=== PATIENT | male | born 1940 | race Caucasian/White ===

== ENCOUNTER 2018-12-01 17:23 | Emergency (ER) | payer MEDICARE, OTHER ==
[~2018-12-01] VITALS: Ht 177.8 cm; Wt 102.8 kg
[~2018-12-01 17:23] MED LIST: ALLO100 PO; ASPI325 PO; ASPI325EC PO; ATOR10 PO; ATOR20 PO; COLC.6 PO; DIAZ5 PO; Enablex15 MG PO; Humalog100 UNIT/1 SC; IBUP600 PO; INSULANPEN SC; Indomethacin50 MG PO; JARDIANCE10 MG PO; LISI5 PO; METO50 PO; METOPROLOL PO; NAPR500 PO; OXYACE5T PO; PRAM.5 PO; PRED20 PO; QUIN325 PO; SAXA2.5T PO; TRAM50 PO; Toviaz8 MG PO
[2018-12-01 18:08] LABS: Base Excess Venous 0.8 mmol/L; Bicarbonate Venous 24.7 mmol/L (24.0-30.0); PO2 Venous 62.7 mmHg (38-42); pH Blood Venous 7.39 (7.34-7.37)
[2018-12-01 18:16] LABS: Source, Urine Clean Catch
[2018-12-01 18:22] LABS: BASOPHILS ABSOLUTE AUTO 0.02 K/mm3 (0.00-0.23); BASOPHILS PERCENT AUTO 0 % (0-2); EOSINOPHILS ABSOLUTE AUTO 0.32 K/mm3 (0.00-0.68); EOSINOPHILS PERCENT AUTO 4 % (0-6); Hematocrit 44.1 % (37.0-53.0); Hemoglobin 15.1 g/dL (13.5-17.5); IMMATURE GRAN ABSOLUTE AUTO 0.02 K/mm3 (0.00-0.10); IMMATURE GRAN PERCENT AUTO 0 % (0-1); LYMPHOCYTES ABSOLUTE AUTO 2.17 K/mm3 (0.84-5.20); LYMPHOCYTES PERCENT AUTO 29 % (21-46); MONOCYTES ABSOLUTE AUTO 0.64 K/mm3 (0.16-1.47); MONOCYTES PERCENT AUTO 9 % (4-13); Mean Corpuscular HGB 32.1 pg (26.0-34.0); Mean Corpuscular HGB Conc 34.2 g/dL (31.5-36.5); Mean Corpuscular Volume 94 fL (80-100); Mean Platelet Volume 10.5 fL (9.1-12.4); NEUTROPHILS ABSOLUTE AUTO 4.37 K/mm3 (1.96-9.15); NEUTROPHILS PERCENT AUTO 58 % (41-73); Platelet Count 172 K/mm3 (150-400); RDW Coefficient Variation 12.8 % (11.7-14.2); RDW Standard Deviation 43.9 fL (35.1-46.3); White Blood Cell Count 7.54 K/mm3 (4.00-11.30)
[2018-12-01 18:23] LABS: Appearance, Urine Clear (Clear); Bilirubin, Urine Neg (Neg); Blood, Urine 1+ (Neg); Color, Urine Yellow (P-Yellow); Glucose Qualitative, Urine 2+ (Neg); Ketones, Urine Neg (Neg); Leukocyte Esterase, Urine Neg (Neg); Nitrite, Urine Neg (Neg); Protein, Urine 2+ (Neg); Specific Gravity, Urine 1.025 (1.003-1.022); Urobilinogen, Urine NORM (Normal)
[2018-12-01 18:42] LABS: Bacteria Rare /hpf; Squamous Epithelial Cells Rare /hpf (Few); White Blood Cells, Urine 0-2 /hpf (0-5)
[2018-12-01 18:51] LABS: Alanine Aminotransfer (ALT/SGP 63 U/L (12-78); Albumin, Blood 3.5 g/dL (3.4-5.0); Albumin/Globulin Ratio 0.8 (0.8-1.8); Alk Phos 104 U/L (50-136); Anion Gap 7 mmol/L (6-16); Aspartate Aminotrans (AST/SGOT 44 U/L (12-37); Bilirubin, Total 0.4 mg/dL (0.1-1.0); Blood Urea Nitrogen 25 mg/dL (8-24); Bun/Creatinine Ratio 20.8 (12.0-20.0); CO2, Blood 25 mmol/L (21-32); Chloride, Blood 104 mmol/L (98-108); Globulin, Blood 4.5 g/dL (2.2-4.0); Glomerular Filtration Rate >60 (60-); Glucose, Blood 245 mg/dL (70-99); Potassium, Blood 4.1 mmol/L (3.5-5.5); Sodium, Blood 136 mmol/L (136-145)
== END 2018-12-01 21:20 | disposition short-term general hospital (02) ==
LOC: ER 17:23
PROVIDERS: Physician Assistant
DX: I60.9 Nontraumatic subarachnoid hemorrhage, unspecified (principal); E11.9 Type 2 diabetes mellitus without complications; I10 Essential (primary) hypertension; Z88.8 Allergy status to other drugs, medicaments and biological substances; Z79.899 Other long term (current) drug therapy; Z79.82 Long term (current) use of aspirin; Z79.4 Long term (current) use of insulin; Z79.891 Long term (current) use of opiate analgesic; I25.2 Old myocardial infarction; Z86.73 Personal history of transient ischemic attack (TIA), and cerebral infarction without residual deficits
CPT/HCPCS: 36415; 70450; 80053; 81001; 82010; 82803; 85025; 93005; 93010; 96374; 96375; 99285-25; J1953; J7050

== ENCOUNTER 2019-04-23 13:11 | Emergency (ER) | payer MEDICARE, OTHER ==
[~2019-04-23] VITALS: Ht 175.3 cm; Wt 89.4 kg
[2019-04-23 13:59] LABS: BASOPHILS ABSOLUTE AUTO 0.03 K/mm3 (0.00-0.23); BASOPHILS PERCENT AUTO 0 % (0-2); EOSINOPHILS ABSOLUTE AUTO 0.54 K/mm3 (0.00-0.68); EOSINOPHILS PERCENT AUTO 6 % (0-6); Hematocrit 42.3 % (37.0-53.0); Hemoglobin 13.9 g/dL (13.5-17.5); IMMATURE GRAN ABSOLUTE AUTO 0.02 K/mm3 (0.00-0.10); IMMATURE GRAN PERCENT AUTO 0 % (0-1); LYMPHOCYTES PERCENT AUTO 26 % (21-46); MONOCYTES ABSOLUTE AUTO 0.69 K/mm3 (0.16-1.47); MONOCYTES PERCENT AUTO 7 % (4-13); Mean Corpuscular HGB 30.8 pg (26.0-34.0); Mean Corpuscular HGB Conc 32.9 g/dL (31.5-36.5); Mean Corpuscular Volume 94 fL (80-100); Mean Platelet Volume 10.4 fL (9.1-12.4); NEUTROPHILS ABSOLUTE AUTO 5.59 K/mm3 (1.96-9.15); NEUTROPHILS PERCENT AUTO 60 % (41-73); Platelet Count 167 K/mm3 (150-400); RDW Coefficient Variation 14.5 % (11.7-14.2); RDW Standard Deviation 49.3 fL (35.1-46.3); Red Blood Cell Count 4.52 M/mm3 (4.30-5.90); White Blood Cell Count 9.27 K/mm3 (4.00-11.30)
[2019-04-23 14:17] LABS: Alanine Aminotransfer (ALT/SGP 30 U/L (12-78); Albumin, Blood 3.5 g/dL (3.4-5.0); Albumin/Globulin Ratio 0.8 (0.8-1.8); Alk Phos 122 U/L (50-136); Anion Gap 5 mmol/L (6-16); Aspartate Aminotrans (AST/SGOT 21 U/L (12-37); Bilirubin, Total 0.3 mg/dL (0.1-1.0); Blood Urea Nitrogen 33 mg/dL (8-24); Bun/Creatinine Ratio 33.4 (12.0-20.0); CO2, Blood 30 mmol/L (21-32); Chloride, Blood 106 mmol/L (98-108); Creatinine, Blood 0.99 mg/dL (0.60-1.20); Globulin, Blood 4.6 g/dL (2.2-4.0); Glomerular Filtration Rate >60 (60-); Glucose, Blood 110 mg/dL (70-99); Potassium, Blood 4.1 mmol/L (3.5-5.5); Sodium, Blood 141 mmol/L (136-145); Total Protein, Blood 8.1 g/dL (6.4-8.2)
[2019-04-23 15:27] LABS: CPK Creatine Kinase 65 U/L (39-308)
[2019-04-23 16:34] LABS: Source, Urine Clean Catch
[2019-04-23 16:42] LABS: Bilirubin, Urine Neg (Neg); Blood, Urine Neg (Neg); Glucose Qualitative, Urine Neg (Neg); Ketones, Urine 1+ (Neg); Leukocyte Esterase, Urine 1+ (Neg); Nitrite, Urine Neg (Neg); Protein, Urine 2+ (Neg); Specific Gravity, Urine 1.025 (1.003-1.022); Urobilinogen, Urine NORM (Normal)
[2019-04-23 16:48] LABS: Appearance, Urine Hazy (Clear); Color, Urine Yellow (P-Yellow)
[2019-04-23 16:49] LABS: Bacteria Rare /hpf; Red Blood Cells, Urine 0-2 /hpf (0-2); Squamous Epithelial Cells Few /hpf (Few)
[2019-04-23] MEDS ORDERED: Fleet Enema132 ML PR (16:54)
[2019-04-23] MEDS ORDERED: CEPH500 PO (16:54)
== END 2019-04-23 17:11 | disposition home or self-care (01) ==
LOC: ER 13:11
PROVIDERS: Physician Assistant
DX: R55 Syncope and collapse (principal); S40.811A Abrasion of right upper arm, initial encounter; K59.00 Constipation, unspecified; E86.0 Dehydration; W18.30XA Fall on same level, unspecified, initial encounter; Z88.8 Allergy status to other drugs, medicaments and biological substances; Z79.899 Other long term (current) drug therapy; Z79.82 Long term (current) use of aspirin; Z79.4 Long term (current) use of insulin; Z79.891 Long term (current) use of opiate analgesic; I25.2 Old myocardial infarction; E11.9 Type 2 diabetes mellitus without complications
CPT/HCPCS: 36415; 73080; 74019; 80053; 81001; 82550; 83880; 85025; 87086; 90471; 90714; 93005; 93010; 96361; 96374; 99284-25; J3010; J7030

== ENCOUNTER 2020-05-26 14:12 | Inpatient (IN) | payer MEDICARE, OTHER ==
[~2020-05-26] VITALS: Ht 175.3 cm; Wt 101.2 kg
[~2020-05-26 14:12] MED LIST changes: +CEPH500 PO; +Fleet Enema132 ML PR; +INDO50 PO; -Indomethacin50 MG PO
[2020-05-26] MEDS ORDERED: KEPPRA250 MG PO (14:39)
[2020-05-26] MEDS ORDERED: TAMS.4ER PO (14:40)
[2020-05-26] MEDS ORDERED: LACO50TA2 PO (14:41)
[2020-05-26] MEDS ORDERED: ATOR20 PO (14:42)
[2020-05-26 14:57] LABS: BASOPHILS ABSOLUTE AUTO 0.02 K/mm3 (0.00-0.23); BASOPHILS PERCENT AUTO 0 % (0-2); EOSINOPHILS ABSOLUTE AUTO 0.27 K/mm3 (0.00-0.68); EOSINOPHILS PERCENT AUTO 4 % (0-6); Hematocrit 41.8 % (37.0-53.0); IMMATURE GRAN ABSOLUTE AUTO 0.02 K/mm3 (0.00-0.10); IMMATURE GRAN PERCENT AUTO 0 % (0-1); LYMPHOCYTES ABSOLUTE AUTO 3.04 K/mm3 (0.84-5.20); LYMPHOCYTES PERCENT AUTO 42 % (21-46); MONOCYTES PERCENT AUTO 8 % (4-13); Mean Corpuscular HGB 32.5 pg (26.0-34.0); Mean Corpuscular HGB Conc 33.5 g/dL (31.5-36.5); Mean Corpuscular Volume 97 fL (80-100); Mean Platelet Volume 10.3 fL (9.1-12.4); NEUTROPHILS ABSOLUTE AUTO 3.33 K/mm3 (1.96-9.15); NEUTROPHILS PERCENT AUTO 46 % (41-73); Platelet Count 148 K/mm3 (150-400); RDW Coefficient Variation 12.8 % (11.7-14.2); RDW Standard Deviation 45.5 fL (35.1-46.3); Red Blood Cell Count 4.31 M/mm3 (4.30-5.90); White Blood Cell Count 7.28 K/mm3 (4.00-11.30)
[2020-05-26 15:12] LABS: Albumin, Blood 3.6 g/dL (3.4-5.0); Albumin/Globulin Ratio 0.9 (0.8-1.8); Bilirubin, Total 0.3 mg/dL (0.1-1.0); Bun/Creatinine Ratio 25.2 (12.0-20.0); Calcium, Blood 8.6 mg/dL (8.5-10.1); Creatinine, Blood 1.23 mg/dL (0.60-1.20); Potassium, Blood 4.4 mmol/L (3.5-5.5); Total Protein, Blood 7.6 g/dL (6.4-8.2)
[2020-05-26 16:30] LABS: International Normalized Ratio 1.03
--- NOTE | 2020-05-26 18:32 | NUR ---
ADMIT PT ARRIVED TO ICU 14 VIA ER BED AT 1800. PT IS AWAKE, ALERT, AND ORIENTED UPON ARRIVAL. PT IS FORGETFUL AT TIME. FOLLOWS DIRECTIONS WELL. VITAL SIGNS STABLE. PT ON ROOM AIR. LR STARTED AT 100 ML/HR PER ORDERS. PT MAEW IN BED. PT SPOUSE AT BEDSIDE. WILL CONTINUE TO MONITOR AND REPORT OFF TO ONCOMING RN.
[2020-05-26] MEDS ORDERED: BASAGLAR K100 UNIT/1 SC (21:03)
[2020-05-26] MEDS ORDERED: ASPI81CH PO (21:04)
[2020-05-26] MEDS ORDERED: Keppra100 MG/1 M PO (22:48)
--- NOTE | 2020-05-26 23:39 | NUR ---
HAKEEM FROM 1915: ASSUMED CARE OF PATIENT. VSS. COMPLETED PATIENT ADMISSION. AT BEDSIDE; ASSISTING WITH COMPLETION OF MEDICAL HISTORY. CALLED KYLIE PARKER REGARDING MEDICATION RECONCILLATION; PROVIDED MEDICATION LIST, BUT LIST DOES NOT HAVE MED. DOSES; UNABLE TO GET INTO HER ASSISTED LIVING APARTMENT TONIGHT TO BRING IN MEDS.; TO BRING MEDS. IN TOMORROW.
--- NOTE | 2020-05-27 01:23 | NUR ---
PATIENT C/O HEADACHE, LOCALIZED TO FOREHEAD, RATING 8/10. NO NEURO CHANGES NOTED EXCEPT THAT PATIENT APPEARS RESTLESS IN BED; STATES THIS IS NORMAL FOR PATIENT. PATIENT GIVEN TYLENOL 650 MG PO FOR HEADACHE. REPOSITIONED IN BED ON RIGHT SIDE FOR COMFORT.
--- NOTE | 2020-05-27 02:55 | NUR ---
CALLED DR. CLEVELAND REGARDING PATIENT SBP REMAINING IN THE 150'S; REC'D. ORDER CLARIFICATION THAT PRN BP MEDS. ARE TO BE GIVEN ONLY IF SBP >160.
[2020-05-27 03:38] LABS: BASOPHILS ABSOLUTE AUTO 0.02 K/mm3 (0.00-0.23); BASOPHILS PERCENT AUTO 0 % (0-2); EOSINOPHILS ABSOLUTE AUTO 0.24 K/mm3 (0.00-0.68); EOSINOPHILS PERCENT AUTO 3 % (0-6); Hematocrit 41.9 % (37.0-53.0); Hemoglobin 13.9 g/dL (13.5-17.5); IMMATURE GRAN ABSOLUTE AUTO 0.02 K/mm3 (0.00-0.10); IMMATURE GRAN PERCENT AUTO 0 % (0-1); LYMPHOCYTES ABSOLUTE AUTO 2.23 K/mm3 (0.84-5.20); LYMPHOCYTES PERCENT AUTO 25 % (21-46); MONOCYTES ABSOLUTE AUTO 0.64 K/mm3 (0.16-1.47); MONOCYTES PERCENT AUTO 7 % (4-13); Mean Corpuscular HGB 32.2 pg (26.0-34.0); Mean Corpuscular HGB Conc 33.2 g/dL (31.5-36.5); Mean Corpuscular Volume 97 fL (80-100); Mean Platelet Volume 10.4 fL (9.1-12.4); NEUTROPHILS ABSOLUTE AUTO 5.95 K/mm3 (1.96-9.15); NEUTROPHILS PERCENT AUTO 66 % (41-73); Platelet Count 144 K/mm3 (150-400); RDW Coefficient Variation 12.6 % (11.7-14.2); RDW Standard Deviation 45.2 fL (35.1-46.3); Red Blood Cell Count 4.32 M/mm3 (4.30-5.90)
[2020-05-27 03:52] LABS: Bun/Creatinine Ratio 20.9 (12.0-20.0); Calcium, Blood 8.7 mg/dL (8.5-10.1); Creatinine, Blood 1.29 mg/dL (0.60-1.20); Potassium, Blood 4.7 mmol/L (3.5-5.5)
--- NOTE | 2020-05-27 06:20 | NUR ---
SHIFT SUMMARY: PATIENT WITH NO CHANGES IN NEURO EXAM; RESTLESS DURING THE NIGHT. PT. C/O HEADACHE ONCE; RELIEVED BY TYLENOL. SBP 140-150'S. AT BEDSIDE DURING THE NIGHT; UPDATED ON POC. PLAN IS FOR REPEAT CT HEAD TODAY AND CARDIAC/CAROTID U/S. PATIENT STATES HE WOULD LIKE TO GO HOME LATER TODAY IF POSSIBLE.
--- NOTE | 2020-05-27 08:00 | NUR ---
ASSUMED CARE BEDSIDE REPORT RECIEVED. PT IS LAYING IN BED AWAKE, ALERT, AND ORIENTED. PT IS VERY TALKATIVE THIS MORNING. PT IS FORGETFUL AT TIMES. PT COMPLAINS OF HEADACHE AT THIS TIME. DENIES NAUSEA. MAEW. VITAL SIGNS STABLE. LR INFUSING AT 100 ML/HR. PT WITH ATTENDS IN PLACE, PT USING URINAL TO VOID. PT SPOUSE AT BEDSIDE. WILL CONTINUE TO MONITOR.
--- NOTE | 2020-05-27 16:05 | NUR ---
TRANSFER TO MEDICAL REPORT CALLED VIA PHONE. ALL PT BELONGINGS AND MEDS TAKEN WITH PT. PT TAKEN TO ROOM 334 VIA BED WITH BIOMEDICAL EQUIPMENT SPECIALIST. PT SPOUSE FOLLOWING UP TO NEW ROOM.
--- NOTE | 2020-05-27 18:31 | NUR ---
SHIFT SUMMARY. 1608 PT TRANSFERED TO MEDICAL FLOOR FROM ICU VIA BED, PT TRANSFERED WITH SBA WITHOUT ISSUE. NEURO ASSESSMENT WNL. PT DENIES PAIN, SOB, N/V. AT BEDSIDE. NO NEW CHANGES OR CONCERNS.
--- NOTE | 2020-05-27 20:31 | NUR ---
ASSUMED CARE. ANTHONY SITTING ON SIDE OF BED. AOX3 BUT DOES HAVE SOME MEMORY ISSUES. APPARENTLY STARTED AFTER LAST HEMATOMA OF THE HEAD. HAS TROUBLE FINDING WORDS, WHICH IS NEW. PUPILS SLIGHTLY REACTS TO LIGHT, STATES HEADACHE OFF AND ON. BLOCKER AND POLISHER ARE EQUAL, BASE LINE FOR ROM OF ARMS AND LEGS. DORSAL FLEXION AND EXTENTION EQUAL. BRUISING NOTED ON BACK OF RIGHT SIDE OF HEAD. DENIES VISION CHANGES. SPEECH IS CLEAR. USES URINAL AT BEDSIDE. VERY TALKATIVE ABOUT THE LAST YEARS EVENTS AND THE ISSUES THEY HAVE FACED. REQUEST KEPPRA TO BE SWITCHED TO PILL FORM LIQUID CAUSES HIM TO COUGH AND RÍOS HIS THROAT. GAVE WITH APPLESAUCE. SWALLOWED PILLS ONE BY ONE, WITH WATER. CPAP IS NOT WORKING RIGHT NEEDS TO BE TAKEN TO [facility]. THEREFORE 2 LITERS OF O2 READY FOR BEDTIME. WILL CONITNUE TO MONITOR. CALL LIGHT IN REACH.
--- NOTE | 2020-05-28 05:36 | NUR ---
SHIFT SUMMARY: ANTHONY NEUROS HAVE REMAINED THE SAME THROUGHOUT THE NIGHT. HE DID HAVE SOME DIFFICULTY IN FINDING WORDS, SAID IS NEW WITH THIS HEAD INJURY. EYES WERE PINPOINT WITH VERY LITTLE REACTION TO LIGHT. DENIED VISION CHANGES. NO SEIZURE ACTIVITY NOTED. TYLENOL GIVEN X1 FOR HEADACHE. HAS REMAINED AT BEDSIDE ALL NIGHT. SLEPT WELL THIS SHIFT. VS WNL. NO OTHER CHANGES TO REPORT THIS SHIFT.
[2020-05-28] MEDS ORDERED: ACET325 PO (11:32)
[2020-05-28] MEDS ORDERED: LEVE500 PO (11:33)
--- NOTE | 2020-05-28 14:10 | NUR ---
1350 PT DISCHARGED HOME VIA PERSONAL VEHICLE ACCOMPANIED AND DRIVEN BY . PT ESCORTED VIA W/C BY VOLUNTEER TO ENTRANCE. IV REMOVED, D/C PAPERWORK REVIEWED WITH PT AND AND COPY PROVIDED. NEURO ASSESSMENT WNL WITH NO CHANGES. NO NEW CHANGES OR CONCERNS.
[2020-07-12] MEDS ORDERED: ASPI81CH PO (18:00)
== END 2020-05-28 13:53 | disposition home health service (06) | DRG 605 ==
LOC: ER 14:12 → ICUW 17:35 → MEDS 05-27 16:07
PROVIDERS: Emergency Medicine; Nurse Practitioner Acute Care; ADMIT Family Medicine
DX: S00.83XA Contusion of other part of head, initial encounter (principal); W19.XXXA Unspecified fall, initial encounter; G40.909 Epilepsy, unspecified, not intractable, without status epilepticus; N40.0 Benign prostatic hyperplasia without lower urinary tract symptoms; E11.22 Type 2 diabetes mellitus with diabetic chronic kidney disease; I12.9 Hypertensive chronic kidney disease with stage 1 through stage 4 chronic kidney disease, or unspecified chronic kidney disease; N18.9 Chronic kidney disease, unspecified; I25.10 Atherosclerotic heart disease of native coronary artery without angina pectoris; E78.5 Hyperlipidemia, unspecified; Z95.5 Presence of coronary angioplasty implant and graft; Z86.73 Personal history of transient ischemic attack (TIA), and cerebral infarction without residual deficits; Z79.82 Long term (current) use of aspirin
CPT/HCPCS: 36415; 70450; 80048; 80053; 80177; 82947; 83036; 83880; 84146; 84443; 84484; 85025; 85610; 85730; 93306; 93880; 96360; 96361; 97110; 97116; 97162; 99285-25; A9270; A9270-GY; G0378; J7120

== ENCOUNTER 2020-08-03 09:47 | Emergency (ER) | payer MEDICARE, OTHER ==
[~2020-08-03] VITALS: Ht 172.7 cm; Wt 98.9 kg
[~2020-08-03 09:47] MED LIST changes: -ALLO100 PO; +ASPI81CH PO; +KEPPRA250 MG PO; +Keppra100 MG/1 M PO; +TAMS.4ER PO
[2020-08-03 10:36] LABS: BASOPHILS ABSOLUTE AUTO 0.01 K/mm3 (0.00-0.23); BASOPHILS PERCENT AUTO 0 % (0-2); EOSINOPHILS PERCENT AUTO 3 % (0-6); Hematocrit 43.8 % (37.0-53.0); Hemoglobin 14.9 g/dL (13.5-17.5); IMMATURE GRAN ABSOLUTE AUTO 0.02 K/mm3 (0.00-0.10); IMMATURE GRAN PERCENT AUTO 0 % (0-1); LYMPHOCYTES PERCENT AUTO 30 % (21-46); MONOCYTES ABSOLUTE AUTO 0.42 K/mm3 (0.16-1.47); MONOCYTES PERCENT AUTO 6 % (4-13); Mean Corpuscular Volume 97 fL (80-100); Mean Platelet Volume 10.4 fL (9.1-12.4); NEUTROPHILS ABSOLUTE AUTO 4.46 K/mm3 (1.96-9.15); NEUTROPHILS PERCENT AUTO 61 % (41-73); Platelet Count 152 K/mm3 (150-400); RDW Coefficient Variation 13.2 % (11.7-14.2); RDW Standard Deviation 47.4 fL (35.1-46.3); Red Blood Cell Count 4.52 M/mm3 (4.30-5.90); White Blood Cell Count 7.31 K/mm3 (4.00-11.30)
[2020-08-03 10:57] LABS: Alanine Aminotransfer (ALT/SGP 51 U/L (12-78); Albumin, Blood 3.4 g/dL (3.4-5.0); Albumin/Globulin Ratio 0.8 (0.8-1.8); Alk Phos 96 U/L (50-136); Anion Gap 7 mmol/L (6-16); Aspartate Aminotrans (AST/SGOT 27 U/L (12-37); Bilirubin, Total 0.4 mg/dL (0.1-1.0); Blood Urea Nitrogen 32 mg/dL (8-24); Bun/Creatinine Ratio 27.8 (12.0-20.0); CO2, Blood 27 mmol/L (21-32); Calcium, Blood 9.5 mg/dL (8.5-10.1); Chloride, Blood 105 mmol/L (98-108); Creatinine, Blood 1.15 mg/dL (0.60-1.20); Globulin, Blood 4.3 g/dL (2.2-4.0); Glomerular Filtration Rate >60 (60-); Glucose, Blood 219 mg/dL (70-99); Potassium, Blood 4.1 mmol/L (3.5-5.5); Sodium, Blood 139 mmol/L (136-145); Total Protein, Blood 7.7 g/dL (6.4-8.2); Troponin I <0.015 ng/mL (0.000-0.040)
[2020-08-03] MEDS ORDERED: NYAMYC15 G2 TOP (12:50)
[2020-08-03] MEDS ORDERED: ALLO100 PO (12:51)
[2020-08-03] MEDS ORDERED: BASAGLAR K100 UNIT/1 SC (12:51)
[2020-08-03] MEDS ORDERED: ATOR10 PO (12:52)
[2020-08-03] MEDS ORDERED: TOLT4 PO (12:52)
[2020-08-03] MEDS ORDERED: ESCITALOPRAM OXA5 MG PO (12:53)
[2020-08-03] MEDS ORDERED: TAMS.4ER PO (12:54)
[2020-08-03] MEDS ORDERED: LISI20 PO (12:54)
[2020-08-03] MEDS ORDERED: Keppra100 MG/1 M PO (12:55)
[2020-08-03] MEDS ORDERED: VIMPAT PO (12:57)
[2020-08-03] MEDS ORDERED: Aspir 8181 MG PO (12:57)
[2020-08-03] MEDS ORDERED: FOLI1 PO (12:57)
[2020-08-03] MEDS ORDERED: PERIDEX15 ML PO (12:59)
[2020-08-03] MEDS ORDERED: Vitamin D2000 UNIT PO (12:59)
[2020-08-03] MEDS ORDERED: MELA3 PO (13:00)
[2020-08-03] MEDS ORDERED: ACET500 PO (13:01)
[2020-08-03] MEDS ORDERED: DOCU100 PO (14:11)
[2020-08-03] MEDS ORDERED: MIRALAX17 GM PO (14:15)
[2020-08-03] MEDS ORDERED: POTCHL20ER PO (14:15)
[2020-08-03] MEDS ORDERED: MULTI VITAMIN1 EACH PO (14:16)
[2020-08-03] MEDS ORDERED: NYSTATIN100000 UN2 MT (18:50)
[2020-08-05] MEDS ORDERED: AMOCLA875 PO (03:04)
== END 2020-08-03 15:23 | disposition home or self-care (01) ==
LOC: ER 09:47
PROVIDERS: Physician Assistant
DX: R07.89 Other chest pain (principal); B37.0 Candidal stomatitis; R21 Rash and other nonspecific skin eruption; E11.65 Type 2 diabetes mellitus with hyperglycemia; I25.10 Atherosclerotic heart disease of native coronary artery without angina pectoris; F32.9 Major depressive disorder, single episode, unspecified; Z88.8 Allergy status to other drugs, medicaments and biological substances; Z79.4 Long term (current) use of insulin; Z79.82 Long term (current) use of aspirin; Z86.73 Personal history of transient ischemic attack (TIA), and cerebral infarction without residual deficits; Z95.5 Presence of coronary angioplasty implant and graft
CPT/HCPCS: 36415; 70450; 71045; 74177; 80053; 83690; 84484; 85025; 87081; 87430; 93005; 93010; 96360; 99285-25; J7120; Q9967

== ENCOUNTER 2020-09-17 16:11 | Emergency (ER) | payer MEDICARE, OTHER ==
[~2020-09-17] VITALS: Ht 175.3 cm; Wt 99.8 kg
[~2020-09-17 16:11] MED LIST changes: +ACET500 PO; +ALLO100 PO; +AMOCLA875 PO; +Aspir 8181 MG PO; +BASAGLAR K100 UNIT/1 SC; +DOCU100 PO; +ESCITALOPRAM OXA5 MG PO; +FOLI1 PO; +LISI20 PO; +MELA3 PO; +MIRALAX17 GM PO; +MULTI VITAMIN1 EACH PO; +NYAMYC15 G2 TOP; +NYSTATIN100000 UN2 MT; +PERIDEX15 ML PO; +POTCHL20ER PO; +TOLT4 PO; +VIMPAT PO; +Vitamin D2000 UNIT PO
[2020-09-17 18:09] LABS: Source, Urine Clean Catch
[2020-09-17 18:17] LABS: Appearance, Urine Clear (Clear); Bilirubin, Urine Neg (Neg); Blood, Urine Neg (Neg); Color, Urine Yellow (P-Yellow); Glucose Qualitative, Urine Neg (Neg); Ketones, Urine Neg (Neg); Leukocyte Esterase, Urine Neg (Neg); Nitrite, Urine Neg (Neg); Protein, Urine Neg (Neg); Specific Gravity, Urine 1.015 (1.003-1.022); Urobilinogen, Urine NORM (Normal); pH, Urine 6.5 (5.0-8.0)
[2020-09-17] MEDS ORDERED: ATOR10 PO (20:16)
[2020-09-17] MEDS ORDERED: MYRBETRIQ50 MG PO (20:24)
== END 2020-09-17 21:16 | disposition home or self-care (01) ==
LOC: ER 16:11
PROVIDERS: Physician Assistant
DX: K59.00 Constipation, unspecified (principal); I25.2 Old myocardial infarction; E11.9 Type 2 diabetes mellitus without complications; F32.9 Major depressive disorder, single episode, unspecified; Z88.8 Allergy status to other drugs, medicaments and biological substances; Z79.4 Long term (current) use of insulin; Z79.899 Other long term (current) drug therapy; Z95.1 Presence of aortocoronary bypass graft
CPT/HCPCS: 74018; 81003; 82947; 99283-25

== ENCOUNTER 2021-04-16 16:23 | Inpatient (IN) | payer MEDICARE, OTHER ==
[~2021-04-16] VITALS: Ht 180.3 cm; Wt 98.1 kg
[~2021-04-16 16:23] MED LIST changes: +Levetirace100 MG/1 M PT; +MYRBETRIQ50 MG PO; +NYSTRIT TOP; +OLME5TAB PO; -VIMPAT PO; +VIMPAT PT
[2021-04-16 17:56] LABS: BASOPHILS ABSOLUTE AUTO 0.01 K/mm3 (0.00-0.23); BASOPHILS PERCENT AUTO 0 % (0-2); EOSINOPHILS ABSOLUTE AUTO 0.06 K/mm3 (0.00-0.68); EOSINOPHILS PERCENT AUTO 1 % (0-6); Hematocrit 36.8 % (37.0-53.0); Hemoglobin 12.7 g/dL (13.5-17.5); IMMATURE GRAN ABSOLUTE AUTO 0.03 K/mm3 (0.00-0.10); IMMATURE GRAN PERCENT AUTO 0 % (0-1); LYMPHOCYTES PERCENT AUTO 11 % (21-46); MONOCYTES ABSOLUTE AUTO 0.91 K/mm3 (0.16-1.47); MONOCYTES PERCENT AUTO 9 % (4-13); Mean Corpuscular HGB 32.8 pg (26.0-34.0); Mean Corpuscular HGB Conc 34.5 g/dL (31.5-36.5); Mean Corpuscular Volume 95 fL (80-100); Mean Platelet Volume 10.4 fL (9.1-12.4); NEUTROPHILS ABSOLUTE AUTO 7.93 K/mm3 (1.96-9.15); NEUTROPHILS PERCENT AUTO 79 % (41-73); Platelet Count 129 K/mm3 (150-400); RDW Coefficient Variation 13.1 % (11.7-14.2); RDW Standard Deviation 45.8 fL (35.1-46.3); Red Blood Cell Count 3.87 M/mm3 (4.30-5.90); White Blood Cell Count 10.04 K/mm3 (4.00-11.30)
[2021-04-16 18:11] LABS: D-Dimer, Quantitative 1.88 mg/L FEU (0.00-0.52); International Normalized Ratio 1.22
[2021-04-16 18:29] LABS: Anion Gap 7 mmol/L (6-16); Blood Urea Nitrogen 31 mg/dL (8-24); Bun/Creatinine Ratio 23.5 (12.0-20.0); CO2, Blood 24 mmol/L (21-32); Calcium, Blood 8.6 mg/dL (8.5-10.1); Chloride, Blood 107 mmol/L (98-108); Creatinine, Blood 1.32 mg/dL (0.60-1.20); Glomerular Filtration Rate 55 (60-); Glucose, Blood 151 mg/dL (70-99); Sodium, Blood 138 mmol/L (136-145); Troponin I <0.015 ng/mL (0.000-0.040)
[2021-04-16 20:08] LABS: Source, Urine Clean Catch
[2021-04-16 20:11] LABS: Appearance, Urine Clear (Clear); Bilirubin, Urine Neg (Neg); Blood, Urine 1+ (Neg); Color, Urine Yellow (P-Yellow); Glucose Qualitative, Urine Neg (Neg); Ketones, Urine Neg (Neg); Leukocyte Esterase, Urine Neg (Neg); Nitrite, Urine Neg (Neg); Protein, Urine 2+ (Neg); Urobilinogen, Urine NORM (Normal)
[2021-04-16 20:25] LABS: Bacteria Mod /hpf; Red Blood Cells, Urine 0-2 /hpf (0-2); Squamous Epithelial Cells Few /hpf (Few); White Blood Cells, Urine 0-2 /hpf (0-5)
[2021-04-16] MEDS ORDERED: BASAGLAR K100 UNIT/3 SC (21:10)
[2021-04-16] MEDS ORDERED: OLMESARTAN MEDO20 MG PO (21:11)
--- NOTE | 2021-04-17 04:17 | NUR ---
SHIFT SUMMARY: PT ADMITTED TO MEDICAL FLOOR FROM ED MATTHEW. AA0X3. SOME DIFFICULTY RECALLING HISTORY. A BIT TANGENTIAL IN HIS SPEECH. 02 100% ON 4L UPON ARRIVAL, 02 DECREASED TO 3L. 02 DOWN TO 88% WHILE PT SLEEPING W/ CPAP AND 3L BLEED IN, 02 INCREASED TO 6L TO GET SATS OVER 90% WHILE ASLEEP. PT IS ABLE TO COMMUNICATE NEEDS. LS DIM. NO COUGHING. URINARY URGENCY AND FREQUENCY. PT HAS LITTLE NOTICE TO VOID AND IS FREQUENTLY INCONTINENT. DENIES PAIN. REMAINS IN BED. IV FLUIDS INFUSING PER ORDERS. NO ACUTE OVERNIGHT EVENTS. BED LOW, BED ALARM ON, CALL BUTTON IN REACH. WCTM.
[2021-04-17 05:41] LABS: BASOPHILS ABSOLUTE AUTO 0.02 K/mm3 (0.00-0.23); BASOPHILS PERCENT AUTO 0 % (0-2); EOSINOPHILS PERCENT AUTO 1 % (0-6); Hematocrit 34.8 % (37.0-53.0); Hemoglobin 11.8 g/dL (13.5-17.5); IMMATURE GRAN ABSOLUTE AUTO 0.05 K/mm3 (0.00-0.10); IMMATURE GRAN PERCENT AUTO 1 % (0-1); LYMPHOCYTES ABSOLUTE AUTO 1.26 K/mm3 (0.84-5.20); LYMPHOCYTES PERCENT AUTO 13 % (21-46); MONOCYTES ABSOLUTE AUTO 0.87 K/mm3 (0.16-1.47); MONOCYTES PERCENT AUTO 9 % (4-13); Mean Corpuscular HGB 32.5 pg (26.0-34.0); Mean Corpuscular HGB Conc 33.9 g/dL (31.5-36.5); Mean Corpuscular Volume 96 fL (80-100); NEUTROPHILS ABSOLUTE AUTO 7.69 K/mm3 (1.96-9.15); NEUTROPHILS PERCENT AUTO 77 % (41-73); Platelet Count 121 K/mm3 (150-400); RDW Coefficient Variation 13.1 % (11.7-14.2); RDW Standard Deviation 46.6 fL (35.1-46.3); Red Blood Cell Count 3.63 M/mm3 (4.30-5.90); White Blood Cell Count 9.99 K/mm3 (4.00-11.30)
[2021-04-17 05:49] LABS: Albumin, Blood 2.6 g/dL (3.4-5.0); Albumin/Globulin Ratio 0.6 (0.8-1.8); Bilirubin, Total 0.4 mg/dL (0.1-1.0); Bun/Creatinine Ratio 20.5 (12.0-20.0); Calcium, Blood 8.1 mg/dL (8.5-10.1); Creatinine, Blood 1.27 mg/dL (0.60-1.20); Globulin, Blood 4.2 g/dL (2.2-4.0); Potassium, Blood 3.8 mmol/L (3.5-5.5); Total Protein, Blood 6.8 g/dL (6.4-8.2)
--- NOTE | 2021-04-17 18:42 | NUR ---
SHIFT SUMMARY PT IS AOX3 WITH SOME FORGETFULNESS AT TIMES. PT DENIES PAIN, N/V, SOB. PT REMAINS ON 3 L 02. PT IS ONE PERSON ASSIST WITH FWW. PT WORKED WITH PT/OT AND DID WELL. PT REMAINS NPO DUE TO ST EVAL AND BARIUM SWALLOW STUDY. NO ABNORMAL TELE EVENTS OCCURRED THIS SHIFT. PT CBG REMAINING STABLE, CURRENTLY AT 91. PT MET WITH PHYSICIAN, FAMILY, AND PALLIATIVE CARE TO DISCUSS NPO STATUS AND NEXT STEPS. FAMILY WILL CONTINUE TO DISCUSS NUTRITION STATUS. PT IS IN BED, CALL LIGHT IN REACH, BED IN LOW POSITION.
--- NOTE | 2021-04-17 18:48 | NUR ---
[facility] Care visit - Call received from RN requesting visit this blaire re: and pt needing to discuss options for nutritional intake. No review of EMR done prior to visit but pt and gave me some medical history. 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 Pt has had ongoing issues with swallowing that have worsened recently. Pt had a barium swallow study per RN, that did not go well today. I met with pt initially before joined us. He is alert and oriented to person and place and partially to situation. He does not understand why he cannot have PO intake. 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 When joined us we discussed artificial hydration and nutrition and medication administration when pt cannot swallow. I explained that an NG or IV route is temporary and that for termite treater helper nutritional support peg/g-tube is primary route if Jose Luis cannot swallow. Jose Luis vaguely remembers having a g-tube before when reminds him. I answered questions about the home management of that, working with dietitian and Dr for correct formula to meet his nutritional and chronic illness (CAD, DM) needs. Pt is not certain he wants a g-tube. I educated on concerns for him without nutrition in that he will become dehydrated and malnutritioned quickly and he will not be able to survive without adequate hydration/nutrition or with repeated aspriation pneumonias. clearly states that she would like pt to have a g-tube and that he needs one to be able to continue enjoying going to their grandchildren's sporting events and being part of the family. We talked about quality of life, individual decisions on what that looks like. I am not certain pt is completely grasping the consequences of deciding against a feeding tube. I gave pt/ literature to read re: CPR, intubation and feeding tubes to review and planned with them to return tomorrow to review. They know they can let their nurses and drs know of any conclusions, decisions made at any time. Pt denies pain. He has a wet cough. He is sitting in a chair and was up ambulating with a walker and staff assist/gait belt when I first arrived. He is most worried about what he is able to eat tonight and I reinforced that he is NPO at this time. Report on my visit given to pt's RN and
[2021-04-18 04:34] LABS: BASOPHILS ABSOLUTE AUTO 0.02 K/mm3 (0.00-0.23); BASOPHILS PERCENT AUTO 0 % (0-2); EOSINOPHILS ABSOLUTE AUTO 0.14 K/mm3 (0.00-0.68); EOSINOPHILS PERCENT AUTO 2 % (0-6); Hematocrit 33.7 % (37.0-53.0); Hemoglobin 11.4 g/dL (13.5-17.5); IMMATURE GRAN ABSOLUTE AUTO 0.03 K/mm3 (0.00-0.10); IMMATURE GRAN PERCENT AUTO 0 % (0-1); LYMPHOCYTES ABSOLUTE AUTO 1.24 K/mm3 (0.84-5.20); LYMPHOCYTES PERCENT AUTO 15 % (21-46); MONOCYTES ABSOLUTE AUTO 0.86 K/mm3 (0.16-1.47); MONOCYTES PERCENT AUTO 11 % (4-13); Mean Corpuscular HGB 32.9 pg (26.0-34.0); Mean Corpuscular HGB Conc 33.8 g/dL (31.5-36.5); Mean Corpuscular Volume 97 fL (80-100); Mean Platelet Volume 10.3 fL (9.1-12.4); NEUTROPHILS ABSOLUTE AUTO 5.92 K/mm3 (1.96-9.15); NEUTROPHILS PERCENT AUTO 72 % (41-73); Platelet Count 127 K/mm3 (150-400); RDW Coefficient Variation 13.2 % (11.7-14.2); RDW Standard Deviation 46.9 fL (35.1-46.3); Red Blood Cell Count 3.47 M/mm3 (4.30-5.90); White Blood Cell Count 8.21 K/mm3 (4.00-11.30)
[2021-04-18 04:51] LABS: Bun/Creatinine Ratio 19.5 (12.0-20.0); Calcium, Blood 8.1 mg/dL (8.5-10.1); Creatinine, Blood 1.23 mg/dL (0.60-1.20); Potassium, Blood 3.9 mmol/L (3.5-5.5)
--- NOTE | 2021-04-18 06:21 | NUR ---
SHIFT SUMMARY: VSS. AFEB. 02 100% ON 3L VIA NC. REFUSES HOME CPAP TONIGHT. CALLS APPROPRIATELY. UP W/ 1 ASSIST AND FWW TO BATHROOM SEVERAL TIMES DURING THE NIGHT. A/OX3, SOME DIFFICULTY WORD FINDING AND RECALLING INFORMATION. CRACKLES AUSCULTATED IN L LOWER LOBE. DENIES SOB. OCC, NON-PRODUCTIVE COUGHING. REMAINS NPO AT THIS TIME. MAINTENANCE IV FLUIDS INFUSING. DENIES PAIN. NO ACUTE OVERNIGHT EVENTS. WCTM.
--- NOTE | 2021-04-18 14:31 | NUR ---
Pal Care visit and joint meeting with dietitian and pt's RN to discuss nutritional intake options and specifically peg tube. Pt was up in hallway walking with PT earlier today. He stated he wanted to be able to continue doing that, which offered the perfect opening to discuss his nutritional needs to maintain that level of activity and quality of life. Pt cont to ask good questions and now agrees with his family that having a peg tube placed at this time will best meet his needs and goals. Dolly and Jose Luis were able to ask many questions and voice their concerns, which were addressed by me, dietitian and pt's RN. Dr Reed called with report afterwards and VO obtained and entered for provider consult to Dr Gamboa for peg tube placement. RN to call providers service/office. Pt did not demonstrate nonverbal indicators of pain and he did not report pain. He did verbalize some grief and anxiety about not being able to eat and the need to remember not to eat. is hopeful that working with ST will improve pt's swallow so that he can have some PO intake at some point. Dietitian discussed NG dobhoff placement with pt/ for interium nutrition and meds in case surgical procedure does not happen until after holiday weekend. They are considering this.
--- NOTE | 2021-04-18 17:04 | NUR ---
SHIFT SUMMARY NO ACUTE CHANGES, A&Ox4, COOPERATIVE c CARE. DENIES ANY DISTRESS OR PAIN. DOES REPORT THAT HIS RESTLESS LEG SYNDROME IS STARTING TO ACT UP DUE TO HIM BEING NPO AND UNABLE TO TAKE HIS USUAL MEDS AT THIS TIME. PT HAS BEEN ON RA FOR MOST OF THE DAY, SATING ABOVE 92%. PT PLACES 1 L/MIN AT TIMES, WAS ON 2 L/MIN AT BEGINNING OF SHIFT. DENIES ANY SOB. PT AND DECIDED TO GO FORTH WITH PEG TUBE TODAY, PLACEMENT IS TO TAKE PLACE TOMORROW. COVID TEST COMPLETED AND SENT TO LAB. WILL REMAIN NPO AT THIS TIME. VS AND CBG STABLE. TELE - SR @ 74, 1ST DEGREE BLOCK. PT IS CURRENTLY DANGLING AT BEDSIDE, CALL LIGHT WITHIN REACH. CALLS APPROPRIATELY.
[2021-04-18 17:55] LABS: SARS-Cov-2 (COVID-19) PCR, MMC NEGATIVE (NEGATIVE)
--- NOTE | 2021-04-18 23:08 | NUR ---
IV ACCESS FAILED DAY RN REPORTED TO ME THAT THE PT HAD NO IV AND NEEDED ONE FOR HIS PROCEDURE TOMORROW. SHE REPORTED THAT MULTIPLE IV ATTEMPTS HAD FAILED. MY ANIMAL GROOMER TRIED AND FAILED HIMSELF. POLE INSPECTOR TRIED A POWERGLIDE AND FAILED AFTER NUMEROUS ATTEMPTS. I DID INFORM THE HOSPITALIST. THE NURSING LASER SPECIALIST WAS INFORMED BY MY CHARGE. THE PHARMACIST STATED THAT WE SHOULD NOT MISS THE NIGHT DOSE OF KEPPRA. THE HOSPITALIST AGREED TO CHANGE THE ROUTE OF THE KEPPRA IT IS ONLY 15 ML. THEN WE WILL PROCEED TO ADMIN PO WITH HIGH ASPIRATION PRECAUTIONS IN PLACE. THE PT AGREED TO THIS PLAN.
--- NOTE | 2021-04-19 03:55 | NUR ---
SHIFT SUMMARY ADMITTED FOR ASPIRATION PNA WITH WEAKNESS. FULL CODE. UNABLE TO ESTABLISH IV ACCESS THIS SHIFT WITH ATTEMPTS BY CHIEF CONSOLE OPERATOR TY AND INVESTIGATIONS CONSULTANTHARDY SALINAS. PT MEDICATED WITH KEPPRA SOLUTION AND STRICT ASPIRATION PREVENTION TECHNIQUES AFTER CONSULTATION WITH HOSPITALIST. PT HAVING PEG TUBE PLACED THIS AM. PT REFUSES TO USE HOME CPAP SO PUT ON 1.5L AT NOC TO SLEEP. NO OTHER CONCERNS THIS SHIFT.
--- NOTE | 2021-04-19 04:14 | NUR ---
CTA/ASSISTANT PROFESSOR OF ECONOMICS I HAVE ASSESSED THIS PT. I HAVE READ THE ASSISTANT PROFESSOR OF ECONOMICS'S DOCUMENTATION AND I AGREE. SHIFT SUMMARY IN ASSISTANT PROFESSOR OF ECONOMICS NOTES.
--- NOTE | 2021-04-19 08:01 | NUR ---
TRANSPORTED TO SURGERY AT 0800
--- NOTE | 2021-04-19 08:22 | NUR ---
04/19/21 0822 Namrata Cali History, Chart, Medications and Allergies reviewed before start of procedure. MONITOR INTACT WITH CONTINUOUS PULSE OXIMETRY AND INTERMITTENT BP. O2 VIA N/C INTACT THROUGHOUT SEDATION/PROCEDURE. See Anesthesia record.
--- NOTE | 2021-04-20 04:25 | NUR ---
SHIFT SUMMARY ADMITTED FOR ASPIRATION PNA/NAUSEA/VOMITING/WEAKNESS/FALLS. PT HAD PEG TUBE PLACED LAST SHIFT. MEDS GIVEN PER TUBE WITHOUT DIFFICULTY. PT CONTINUES TO TOSS AND TURN WHILE SLEEPING, TAKING HIS NC OFF AND DROPPING HIS SATURATION INTO HIGH 80S. RETURNS TO AROUND 95 WITH PLACEMENT OF O2. PT RECEIVING NS AT 75 ML/HR. PT RESTING AT THIS TIME.
--- NOTE | 2021-04-20 05:43 | NUR ---
CTA/PRODUCT DESIGN MANAGER I HAVE ASSESSED THIS PT. I HAVE READ THIS PRODUCT DESIGN MANAGER'S DOCUMENTATION AND I AGREE. SHIFT SUMMARY IS IN PRODUCT DESIGN MANAGER NOTES.
--- NOTE | 2021-04-21 04:23 | NUR ---
PHYSICAL TRAINER SUMMARY PT AAOX4 AND PLEASANT. STANDBY ASSIST W/ FWW TO BATHROOM. PT HAS TOLERATED 240 ML BOLUS TUBE FEEDS WELL WITH RESIDUALS <50 ML. NEW PIV PLACED ON LFA PREVIOUS IV STARTED LEAKING. REQUIRING 2L O2 AT NIGHT. VSS, WILL CONTINUE TO MONITOR.
[2021-04-21 04:55] LABS: Hematocrit 33.9 % (37.0-53.0); Hemoglobin 11.7 g/dL (13.5-17.5); Mean Corpuscular HGB 32.2 pg (26.0-34.0); Mean Corpuscular HGB Conc 34.5 g/dL (31.5-36.5); Mean Corpuscular Volume 93 fL (80-100); Mean Platelet Volume 10.4 fL (9.1-12.4); Platelet Count 179 K/mm3 (150-400); RDW Standard Deviation 44.8 fL (35.1-46.3); Red Blood Cell Count 3.63 M/mm3 (4.30-5.90); White Blood Cell Count 6.04 K/mm3 (4.00-11.30)
[2021-04-21 05:26] LABS: Anion Gap 5 mmol/L (6-16); Blood Urea Nitrogen 20 mg/dL (8-24); Bun/Creatinine Ratio 19.4 (12.0-20.0); CO2, Blood 26 mmol/L (21-32); Calcium, Blood 8.5 mg/dL (8.5-10.1); Chloride, Blood 107 mmol/L (98-108); Creatinine, Blood 1.03 mg/dL (0.60-1.20); Glomerular Filtration Rate >60 (60-); Glucose, Blood 165 mg/dL (70-99); Phosphorus, Blood 3.9 mg/dL (2.5-4.9); Potassium, Blood 3.7 mmol/L (3.5-5.5); Sodium, Blood 138 mmol/L (136-145)
--- NOTE | 2021-04-21 05:46 | NUR ---
CREATIVE/ART DIRECTOR SUMMARY PT AAOX4 AND PLEASANT. STANDBY ASSIST IN ROOM. PT'S ONLY COMPLAINT CONTINUES TO BE A HARSH COUGH. MEDICATED WITH TESSALON WITH SOME RELIEF. ALSO GAVE PT NORCO AT BEDTIME WHICH HELPED PT SLEEP FOR 2-3 HOURS WITH NO COUGHING FITS. PT HAD COUGHING SPELL THAT CAUSED SMALL NOSE BLEED AT ONE POINT. HGB UNCHANGED FROM YESTERDAY THIS AM AT 8.8. PT HAS NOT PRODUCED BM TONIGHT FOR OCCULT BLOOD TEST. VSS, WILL CONTINUE TO MONITOR.
--- NOTE | 2021-04-21 18:09 | NUR ---
SHIFT SUMMARY PT UP IN CHAIR SEVERAL TIMES TODAY WITH 1 PERSON ASSIST. AMBULATING TO BATHROOM AND ALSO HALLWAY USING FWW WITH STAFF. TOLERATING TUBE FEEDINGS WITH NO INCREASE IN NAUSEA, BLOATING, REFLUX, GAS. DOES REPORT 1 NORMAL AND 1 LOOSE STOOL TODAY. HERE FOR SHORT TIME THIS AFTERNOON BUT FELT UNWELL AND WAS UNABLE TO WORK ON EDUCATION RELATED TO TUBE FEEDING. EXPRESSED CONCERN ABOUT PT COMING HOME AND FEAR OF NOT BEING ABLE TO PERFORM TASK. ENCOURAGED AND TOLD HER TO COME TOMORROW IN A.M. FOR EDUCATION. PT HAS HAD NO PAIN TODAY.
[2021-04-22 05:13] LABS: Magnesium, Blood 2.1 mg/dL (1.6-2.4); Phosphorus, Blood 4.2 mg/dL (2.5-4.9)
--- NOTE | 2021-04-22 05:19 | NUR ---
OIL WELL CABLE TOOL OPERATOR SUMMARY NO ACUTE CHANGES THIS SHIFT. PT AAOX4 AND PLEASANT. STANDBY ASSIST W/ FWW TO THE BATHROOM. PT REPORTS ISSUES WITH INCONTINENCE AT TIMES AND INABILITY TO CONTROL BLADDER SINCE HAVING A GODOY CATHETER PLACED DURING A PREVIOUS HOSPITALIZATION SOME TIME AGO. PT TOLERATED FULL 480 ML BOLUS FEED THAT WAS GIVEN OVER 30 MINUTES. DENIES FEELING OVERLY FULL OR BLOATED. CBG AT 0000 OF 156, HELD THAT DOSE OF MED SCALE INSULIN PT IS NPO AND NOT SCHEDULED TO GET ANOTHER BOLUS FEED UNTIL BREAKFAST, DID NOT WANT TO POSSIBLY TANK CBG DURING THE NIGHT. VSS, WILL CONTINUE TO MONITOR.
--- NOTE | 2021-04-22 12:00 | NUR ---
EXTENSIVE EDUCATION GIVEN FOR TUBE FEEDING GIVEN TO PT AND . PT WAS ABLE TO GIVEN SOME REPEAT BACK OF KNOWLEDGE OF HOW TO DO TUBE FEEDING BY BOLUS WITH SYRINGE AND APPEARED TO UNDERSTAND WITH HER PERFORMING TASK UNDER DIRECTION BUT SHE STRUGGLED TO MAINTAIN CONCENTRATION OF TASK AT HAND. PT APPEARED FRUSTRATED WITH ATTEMPTING TO DO IT ALL HERSELF AND NOT ALLOWING HIM TO ASSIST AFTER BEING ENCOURAGED FOR EACH ONE OF THEM TO BE PERFORMING A TASK AND EXPLAINING THE TASKS. PT UNABLE TO TOLERATE ENTIRE FIRST FEEDING FOR THE DAY AND WAS UNABLE TO RECEIVE APPROX 4 OZ. HAS HAD 1 LOOSE STOOL.
[2021-04-22] MEDS ORDERED: ASPI81CH PT (14:38)
[2021-04-22] MEDS ORDERED: Docu Liqui50 MG/5 ML PT (14:38)
[2021-04-22] MEDS ORDERED: CITA20 PT (14:40)
[2021-04-22] MEDS ORDERED: DULCOLAX400 MG/5 M PT (14:42)
[2021-04-22] MEDS ORDERED: AUGMENTIN250 MG/5 M PT (14:43)
[2021-04-22] MEDS ORDERED: BISA10S PR (14:44)
[2021-04-22] MEDS ORDERED: HUMALOG KW100 UNIT/1 SC (14:45)
[2021-04-22] MEDS ORDERED: ROPI.25 PT (14:45)
--- NOTE | 2021-04-22 18:38 | NUR ---
SHIFT SUMMARY PT NAPPING THIS AFTERNOON AND MOSTLY UP IN CHAIR. FED PT LUNCH BY BOLUS THROUGH PUMP AND TOLERATED BETTER THAN SYRINGE BOLUS. AT BEDSIDE PART OF AFTERNOON. PASTE MAKER IN TO SPEAK WITH PT AND STOCK DRIER TENDER IN TWICE TO SPEAK EXTENSIVELY TO PT AND ABOUT HOME CARE AND FEEDINGS. THIS RN RECOMMENDED GRAVITY BY BAGE FEEDS MAY BE EASIER TOLERATED AND BETTER UNDERSTOOD BY PT AND . PT WALKING IN HALLWAY WITH FWW WITH O.T. THIS AFTERNOON. APPEARS VERY STABLE ON FEET.
--- NOTE | 2021-04-22 19:16 | NUR ---
REPORTING 2 EPISODES OF DIAHRREA WHILE BOLUS FEEDING INFUSING. STOPPED DUE TO FEELING BLOATED AND STOMACH LOUDLY RUMBLING AND PT FEELING VERY UNCOMFORTABLE. RECEIVED ONLY 270ML OF FEEDING.
--- NOTE | 2021-04-23 04:17 | NUR ---
SHIFT SUMMARY PT HAS RESTED OFF AND ON T/O THE NIGHT. HE HAS BEEN UP FREQUENTLY T/O THE NIGHT WITH DIARRHEA. PT TOLERATED HIS LAST BOLUS FEED THIS SHIFT, NO RESIDUAL BEFORE INITIATING FEED. ASSESSMENT REMAINS UNCHANGED. PLAN IS FOR DC TODAY. FURTHER EDUCATION NEEDED FOR PT AND FAMILY REGARDING FEEDS. PT SEEMS MOTIVATED TO LEARN. NO ACUTE CHANGES TO REPORT OVERNIGHT. BED IN LOWEST POSITION, CALL LIGHT WITHIN REACH.
[2021-04-23 04:58] LABS: Magnesium, Blood 2.2 mg/dL (1.6-2.4); Phosphorus, Blood 3.3 mg/dL (2.5-4.9)
--- NOTE | 2021-04-23 14:00 | NUR ---
REVIEW D'C WITH FAMILY. SPENT ONE HOUR TEACHING TUBE FEEDING WITH DEMONSTRATING BACK. SPENT OVER ONE HOUR ON D'C INSTRUCTIONS. AWARE HAS MEDS AT [facility]. REVIEW ALL MEDS AND HOW TO GIVE THRU PEG TUBE. TUBE FEEDING CONTAINERS GIVEN WITH ENOUGH TO LAST TILL HH VISITS. RX FOR NEW WALKER FAXED IN BY CARE MANAGEMENT. AWARE CAN RETURN TO E.R. IF ANY PROBLEMS OR CONCERNS. IV D'C. BRUISING TONIO ARMS. ANSWER ALL QUESTIONS. VERBALIZES UNDERSTANDING. PCP OFFICE CLOSED WHEN PATIENT D'C SO AWARE SHE NEEDS TO MAKE F/U APPT FOR PATIENT. IN W/C TO POV WITH MULTIPLE BELONGINGS BAGS.
== END 2021-04-23 14:10 | disposition home health service (06) | DRG 177 ==
LOC: ER 16:23 → MEDS 21:37 → ENPENDDIS 04-22 15:02 → MEDS 04-23 05:55
PROVIDERS: Emergency Medicine; Internal Medicine; Surgery; ADMIT Internal Medicine
PROC: 0DJ08ZZ Inspection of Upper Intestinal Tract, Via Natural or Artificial Opening Endoscopic (ICD-10-PCS; 2021-04-19)
PROC: 0DH63UZ Insertion of Feeding Device into Stomach, Percutaneous Approach (ICD-10-PCS; principal; 2021-04-19 08:30)
DX: J69.0 Pneumonitis due to inhalation of food and vomit (principal); J96.01 Acute respiratory failure with hypoxia; J44.0 Chronic obstructive pulmonary disease with (acute) lower respiratory infection; I69.359 Hemiplegia and hemiparesis following cerebral infarction affecting unspecified side; Z20.822 Contact with and (suspected) exposure to COVID-19; M54.9 Dorsalgia, unspecified; G89.29 Other chronic pain; M10.9 Gout, unspecified; R13.10 Dysphagia, unspecified; E86.0 Dehydration; F32.9 Major depressive disorder, single episode, unspecified; G47.33 Obstructive sleep apnea (adult) (pediatric); E11.9 Type 2 diabetes mellitus without complications; Z88.8 Allergy status to other drugs, medicaments and biological substances; I25.2 Old myocardial infarction; Z88.5 Allergy status to narcotic agent; Z79.82 Long term (current) use of aspirin; Z79.899 Other long term (current) drug therapy; Z90.49 Acquired absence of other specified parts of digestive tract; Z95.5 Presence of coronary angioplasty implant and graft; Z98.890 Other specified postprocedural states
CPT/HCPCS: 36415; 70450; 70496; 70498; 71045; 71260; 74230; 80048; 80053; 81001; 82947; 83605; 83735; 83880; 84100; 84145; 84484; 85025; 85027; 85379; 85610; 85730; 86850; 86900; 86901; 87040; 87086; 92526; 92610; 92611; 93005; 93010; 94660; 94664; 94762; 96374-59; 96375-59; 97116; 97162; 97166; 97530; 97535; 99285-25; A9270; C9254; J0456; J0696; J1650; J1953; J2704; J7030; J7050; J7120; Q9967; U0004

== ENCOUNTER 2021-05-29 02:22 | Emergency (ER) | payer MEDICARE, OTHER ==
[~2021-05-29] VITALS: Ht 175.3 cm; Wt 91.6 kg
[~2021-05-29 02:22] MED LIST changes: +ASPI81CH PT; +AUGMENTIN250 MG/5 M PT; +BASAGLAR K100 UNIT/3 SC; +BISA10S PR; +CITA20 PT; +DULCOLAX400 MG/5 M PT; +Docu Liqui50 MG/5 ML PT; +HUMALOG KW100 UNIT/1 SC; +OLMESARTAN MEDO20 MG PO; +ROPI.25 PT
== END 2021-05-29 04:31 | disposition left against medical advice (07) ==
LOC: ER 02:22
DX: Z53.21 Procedure and treatment not carried out due to patient leaving prior to being seen by health care provider (principal)

== ENCOUNTER 2022-01-23 12:21 | Emergency (ER) | payer MEDICARE, OTHER ==
[~2022-01-23] VITALS: Ht 177.8 cm; Wt 98.0 kg
[~2022-01-23 12:21] MED LIST changes: +VIMPAT10 MG/1 M1 PT
== END 2022-01-23 17:40 | disposition home or self-care (01) ==
LOC: ER 12:21
DX: K94.23 Gastrostomy malfunction (principal); I25.2 Old myocardial infarction; Z88.5 Allergy status to narcotic agent; Z88.8 Allergy status to other drugs, medicaments and biological substances; Z79.82 Long term (current) use of aspirin; Z79.4 Long term (current) use of insulin; Z79.899 Other long term (current) drug therapy
CPT/HCPCS: 43762; 49465; 96372; 99283-25; J3010; Q9963

== ENCOUNTER 2022-03-01 03:28 | Emergency (ER) | payer MEDICARE, OTHER ==
[~2022-03-01] VITALS: Ht 175.3 cm; Wt 98.9 kg
== END 2022-03-01 05:37 | disposition home or self-care (01) ==
LOC: ER 03:28
DX: K94.23 Gastrostomy malfunction (principal); Z88.5 Allergy status to narcotic agent; Z88.8 Allergy status to other drugs, medicaments and biological substances; Z79.899 Other long term (current) drug therapy; Z79.4 Long term (current) use of insulin; Z79.82 Long term (current) use of aspirin; I25.2 Old myocardial infarction; E11.9 Type 2 diabetes mellitus without complications; J44.9 Chronic obstructive pulmonary disease, unspecified
CPT/HCPCS: 43762; 49465; 99283-25; Q9963

== ENCOUNTER 2022-03-04 21:09 | Emergency (ER) | payer MEDICARE, OTHER ==
[~2022-03-04] VITALS: Ht 175.3 cm; Wt 99.3 kg
== END 2022-03-04 22:00 | disposition home or self-care (01) ==
LOC: ER 21:09
DX: K94.23 Gastrostomy malfunction (principal); Z88.5 Allergy status to narcotic agent; Z88.8 Allergy status to other drugs, medicaments and biological substances; Z79.82 Long term (current) use of aspirin; Z79.4 Long term (current) use of insulin; Z79.899 Other long term (current) drug therapy; I25.2 Old myocardial infarction; E11.9 Type 2 diabetes mellitus without complications; M10.9 Gout, unspecified
CPT/HCPCS: 99282

== ENCOUNTER 2022-03-24 03:01 | Emergency (ER) | payer MEDICARE, OTHER ==
[~2022-03-24] VITALS: Ht 175.3 cm; Wt 99.8 kg
[~2022-03-24 03:01] MED LIST changes: +CITA20 PO; -CITA20 PT; +Levetirace100 MG/1 M PO; -Levetirace100 MG/1 M PT; +VIMPAT10 MG/1 M1 PO; -VIMPAT10 MG/1 M1 PT
[2022-03-24] MEDS ORDERED: FLUC150A PO (03:15)
[2022-03-24 03:29] LABS: BASOPHILS ABSOLUTE AUTO 0.03 K/mm3 (0.00-0.23); BASOPHILS PERCENT AUTO 0 % (0-2); EOSINOPHILS ABSOLUTE AUTO 0.35 K/mm3 (0.00-0.68); EOSINOPHILS PERCENT AUTO 4 % (0-6); Hematocrit 40.3 % (37.0-53.0); IMMATURE GRAN ABSOLUTE AUTO 0.01 K/mm3 (0.00-0.10); IMMATURE GRAN PERCENT AUTO 0 % (0-1); LYMPHOCYTES ABSOLUTE AUTO 3.87 K/mm3 (0.84-5.20); LYMPHOCYTES PERCENT AUTO 44 % (21-46); MONOCYTES ABSOLUTE AUTO 0.69 K/mm3 (0.16-1.47); MONOCYTES PERCENT AUTO 8 % (4-13); Mean Corpuscular HGB 33.3 pg (26.0-34.0); Mean Corpuscular HGB Conc 34.7 g/dL (31.5-36.5); Mean Corpuscular Volume 96 fL (80-100); Mean Platelet Volume 10.5 fL (9.1-12.4); NEUTROPHILS ABSOLUTE AUTO 3.91 K/mm3 (1.96-9.15); NEUTROPHILS PERCENT AUTO 44 % (41-73); Platelet Count 147 K/mm3 (150-400); RDW Coefficient Variation 12.7 % (11.7-14.2); RDW Standard Deviation 44.4 fL (35.1-46.3); White Blood Cell Count 8.86 K/mm3 (4.00-11.30)
[2022-03-24 03:41] LABS: Alanine Aminotransfer (ALT/SGP 36 U/L (12-78); Albumin, Blood 3.2 g/dL (3.4-5.0); Albumin/Globulin Ratio 0.8 (0.8-1.8); Alk Phos 102 U/L (50-136); Anion Gap 7 mmol/L (6-16); Aspartate Aminotrans (AST/SGOT 26 U/L (12-37); Bilirubin, Total 0.4 mg/dL (0.1-1.0); Blood Urea Nitrogen 30 mg/dL (8-24); Bun/Creatinine Ratio 30.7 (12.0-20.0); CO2, Blood 25 mmol/L (21-32); Calcium, Blood 8.5 mg/dL (8.5-10.1); Chloride, Blood 106 mmol/L (98-108); Creatinine, Blood 0.98 mg/dL (0.60-1.20); Glomerular Filtration Rate >60 (60-); Glucose, Blood 266 mg/dL (70-99); Potassium, Blood 4.4 mmol/L (3.5-5.5); Sodium, Blood 138 mmol/L (136-145); Total Protein, Blood 7.2 g/dL (6.4-8.2)
[2022-03-24 06:49] LABS: Source, Urine Clean Catch
[2022-03-24 07:01] LABS: Appearance, Urine Clear (Clear); Bilirubin, Urine Neg (Neg); Blood, Urine Neg (Neg); Color, Urine Yellow (P-Yellow); Glucose Qualitative, Urine 3+ (Neg); Ketones, Urine Neg (Neg); Leukocyte Esterase, Urine Neg (Neg); Nitrite, Urine Neg (Neg); Protein, Urine Neg (Neg); Urobilinogen, Urine NORM (Normal)
[2022-03-25] MEDS ORDERED: ACETAMINOP160 MG/51 PO (20:17)
[2022-03-25] MEDS ORDERED: ANTIFUNGAL POWD71 GM TOP (20:21)
== END 2022-03-24 07:49 | disposition home or self-care (01) ==
LOC: ER 03:01
PROVIDERS: Student in an Organized Health Care Education/Training Program
DX: R10.32 Left lower quadrant pain (principal); E11.9 Type 2 diabetes mellitus without complications; J44.9 Chronic obstructive pulmonary disease, unspecified; I25.2 Old myocardial infarction; Z95.5 Presence of coronary angioplasty implant and graft; Z88.5 Allergy status to narcotic agent; Z79.4 Long term (current) use of insulin; Z79.899 Other long term (current) drug therapy; Z79.82 Long term (current) use of aspirin
CPT/HCPCS: 74177; 80053; 81003; 83690; 84484; 85025; 93005; 93010; J1885; J2405; J7030; Q9967

== ENCOUNTER 2022-03-25 09:38 | Inpatient (IN) | payer MEDICARE, OTHER ==
[~2022-03-25] VITALS: Ht 175.3 cm; Wt 101.7 kg
[~2022-03-25 09:38] MED LIST changes: +FLUC150A PO
[2022-03-25 11:00] LABS: Alanine Aminotransfer (ALT/SGP 38 U/L (12-78); Albumin, Blood 3.2 g/dL (3.4-5.0); Albumin/Globulin Ratio 0.8 (0.8-1.8); Alk Phos 78 U/L (50-136); Anion Gap 7 mmol/L (6-16); Aspartate Aminotrans (AST/SGOT 34 U/L (12-37); Bilirubin, Total 0.7 mg/dL (0.1-1.0); Blood Urea Nitrogen 27 mg/dL (8-24); Bun/Creatinine Ratio 28.9 (12.0-20.0); CO2, Blood 24 mmol/L (21-32); Calcium, Blood 8.9 mg/dL (8.5-10.1); Chloride, Blood 102 mmol/L (98-108); Creatinine, Blood 0.94 mg/dL (0.60-1.20); Globulin, Blood 4.2 g/dL (2.2-4.0); Glomerular Filtration Rate >60 (60-); Glucose, Blood 279 mg/dL (70-99); Potassium, Blood 5.8 mmol/L (3.5-5.5); Sodium, Blood 133 mmol/L (136-145); Total Protein, Blood 7.4 g/dL (6.4-8.2)
[2022-03-25 11:25] LABS: BASOPHILS ABSOLUTE AUTO 0.02 K/mm3 (0.00-0.23); BASOPHILS PERCENT AUTO 0 % (0-2); EOSINOPHILS ABSOLUTE AUTO 0.14 K/mm3 (0.00-0.68); EOSINOPHILS PERCENT AUTO 1 % (0-6); Hematocrit 44.3 % (37.0-53.0); IMMATURE GRAN ABSOLUTE AUTO 0.05 K/mm3 (0.00-0.10); IMMATURE GRAN PERCENT AUTO 0 % (0-1); LYMPHOCYTES ABSOLUTE AUTO 1.51 K/mm3 (0.84-5.20); LYMPHOCYTES PERCENT AUTO 13 % (21-46); MONOCYTES ABSOLUTE AUTO 1.16 K/mm3 (0.16-1.47); MONOCYTES PERCENT AUTO 10 % (4-13); Mean Corpuscular HGB 32.6 pg (26.0-34.0); Mean Corpuscular HGB Conc 33.9 g/dL (31.5-36.5); Mean Corpuscular Volume 96 fL (80-100); Mean Platelet Volume 10.5 fL (9.1-12.4); NEUTROPHILS ABSOLUTE AUTO 8.59 K/mm3 (1.96-9.15); NEUTROPHILS PERCENT AUTO 75 % (41-73); Platelet Count 132 K/mm3 (150-400); RDW Coefficient Variation 12.9 % (11.7-14.2); RDW Standard Deviation 45.4 fL (35.1-46.3); White Blood Cell Count 11.47 K/mm3 (4.00-11.30)
[2022-03-25 12:21] LABS: Source, Urine Clean Catch
[2022-03-25 12:32] LABS: Appearance, Urine Clear (Clear); Bilirubin, Urine Neg (Neg); Blood, Urine Neg (Neg); Color, Urine Yellow (P-Yellow); Glucose Qualitative, Urine 2+ (Neg); Ketones, Urine Neg (Neg); Leukocyte Esterase, Urine Neg (Neg); Nitrite, Urine Neg (Neg); Protein, Urine 1+ (Neg); Specific Gravity, Urine 1.015 (1.003-1.022); Urobilinogen, Urine NORM (Normal)
[2022-03-25 14:05] LABS: Calcium, Ionized (POC) 1.07 mmol/L (1.10-1.46); Chloride (POC) 100 mmol/L (98-108); Creatinine (POC) 0.9 mg/dL (0.8-1.3); Glucose (ISTAT POC) 134 mg/dL (70-99); Potassium (POC) 4.4 mmol/L (3.5-5.5); Sodium (POC) 136 mmol/L (135-148); Total CO2 (POC) 24 mmol/L (21-32)
[2022-03-25 17:59] LABS: Base Excess Venous 5.6 mmol/L; Bicarbonate Venous 27.1 mmol/L (24.0-30.0); PCO2 Venous 53.3 mmHg (38-42); PO2 Venous 27.4 mmHg (38-42); pH Blood Venous 7.37 (7.34-7.37)
[2022-03-25] MEDS ORDERED: ACETAMINOP160 MG/51 PO (20:17)
[2022-03-25] MEDS ORDERED: ANTIFUNGAL POWD71 GM TOP (20:21)
--- NOTE | 2022-03-26 04:49 | NUR ---
SHIFT SUMMARY: ED ADMIT AT BEDSIDE. PATIENT IS ALERT AND ORIENTED BUT FORGETFUL WITH POOR CARRYOVER. SCATTERED ECCYMHOSIS REDNESS TO NILAM AREA. NS@100 RUNNING PER ORDER. AND PATIENT STATE INCREASED WEAKNESS SINCE THIS MORNING. HE IS USUALLY FAILRY INDEPENDENT AT HOME. PATIENT HAS BEEN USING URINAL/INCONT EPISODES SINCE ADMISSION "I'M TOO WEAK TO STAND". NO SIGNIFICANT EVENTS ON NOC.
[2022-03-26 05:31] LABS: BASOPHILS ABSOLUTE AUTO 0.02 K/mm3 (0.00-0.23); BASOPHILS PERCENT AUTO 0 % (0-2); EOSINOPHILS PERCENT AUTO 0 % (0-6); Hemoglobin 13.5 g/dL (13.5-17.5); IMMATURE GRAN ABSOLUTE AUTO 0.14 K/mm3 (0.00-0.10); IMMATURE GRAN PERCENT AUTO 1 % (0-1); LYMPHOCYTES PERCENT AUTO 6 % (21-46); MONOCYTES ABSOLUTE AUTO 1.69 K/mm3 (0.16-1.47); MONOCYTES PERCENT AUTO 10 % (4-13); Mean Corpuscular HGB 32.8 pg (26.0-34.0); Mean Corpuscular HGB Conc 33.8 g/dL (31.5-36.5); Mean Corpuscular Volume 97 fL (80-100); Mean Platelet Volume 10.8 fL (9.1-12.4); NEUTROPHILS ABSOLUTE AUTO 14.56 K/mm3 (1.96-9.15); NEUTROPHILS PERCENT AUTO 83 % (41-73); Platelet Count 113 K/mm3 (150-400); RDW Coefficient Variation 12.7 % (11.7-14.2); RDW Standard Deviation 45.1 fL (35.1-46.3); Red Blood Cell Count 4.11 M/mm3 (4.30-5.90); White Blood Cell Count 17.51 K/mm3 (4.00-11.30)
[2022-03-26 05:51] LABS: Anion Gap 8 mmol/L (6-16); Blood Urea Nitrogen 21 mg/dL (8-24); Bun/Creatinine Ratio 20.2 (12.0-20.0); CO2, Blood 26 mmol/L (21-32); Calcium, Blood 8.7 mg/dL (8.5-10.1); Chloride, Blood 102 mmol/L (98-108); Creatinine, Blood 1.04 mg/dL (0.60-1.20); Glomerular Filtration Rate >60 (60-); Glucose, Blood 269 mg/dL (70-99); Potassium, Blood 4.5 mmol/L (3.5-5.5); Sodium, Blood 136 mmol/L (136-145)
--- NOTE | 2022-03-26 15:40 | NUR ---
Spiritual Care Visit Pt. is in bed and spouse is present (but on phone). Pt. and spouse welcome my visit. Pt. is pleasant but displays evidence of mild confusion or exhaustion. Pt. tends to lose train of thought. Through theraputic listening rapport is built between this manager drug and the pt. Pt. displays evidence of adominal discomfort, and often tries to slide one leg off the bed. Prayed with Pt. Pt. shook my hand and verbalized gratitude for the spiritual care visit.
--- NOTE | 2022-03-26 17:40 | NUR ---
SHIFT SUMMARY PT WAS A/OX4 THIS AM. MILD CONFUSION THIS PM. PT IS FORGETFUL BUT EASILY REDIRECTED. SET BED ALARM AND CHAIR ALARM OFF MULTIPLE TIMES. WHEN ASKED WHERE HE IS GOING HE STATES 'I DON'T KNOW'. PICKS AT LINES/GOWN. POWERGLIDE IN TENZIN. WRAPPED IN COBAN AND KERLEX. CT OF ABD THIS PM. 1-2 ASSIST TO CHAIR OR BRP. AND DAUGHTER IN TO SEE PT TODAY.
--- NOTE | 2022-03-26 19:35 | NUR ---
AM ASSESSMENT I AGREE WITH AND WAS PRESNT DURING THE STUDENT NURSE ASSESSMENT AND HAVE REVIEWED AND AGREE WITH HER DOCUMENTATION T/O THE DAY
[2022-03-27 05:35] LABS: Mean Corpuscular HGB 33.6 pg (26.0-34.0); Mean Corpuscular Volume 96 fL (80-100); Mean Platelet Volume 10.9 fL (9.1-12.4); Platelet Count 120 K/mm3 (150-400); RDW Coefficient Variation 12.8 % (11.7-14.2); RDW Standard Deviation 45.4 fL (35.1-46.3); Red Blood Cell Count 4.17 M/mm3 (4.30-5.90); White Blood Cell Count 21.37 K/mm3 (4.00-11.30)
[2022-03-27 05:52] LABS: Anion Gap 7 mmol/L (6-16); Blood Urea Nitrogen 21 mg/dL (8-24); Bun/Creatinine Ratio 19.3 (12.0-20.0); CO2, Blood 26 mmol/L (21-32); Calcium, Blood 8.9 mg/dL (8.5-10.1); Chloride, Blood 101 mmol/L (98-108); Creatinine, Blood 1.09 mg/dL (0.60-1.20); Glomerular Filtration Rate >60 (60-); Glucose, Blood 217 mg/dL (70-99); Sodium, Blood 134 mmol/L (136-145)
--- NOTE | 2022-03-27 06:10 | NUR ---
SHIFT SUMMARY: PATIENT A&OX4 FORGETFUL WITH POOR CARRYOVER. INCREASED CONFUSION THROUGH THE NIGHT. RESTLESS IN BED. IMPLUSLIVE. EASILY REDIRECTED. MEDS CRUSHED IN APPLESAUCE. NO SIGNIFICNAT EVENTS ON NOC.
--- NOTE | 2022-03-27 07:35 | NUR ---
SURGERY CONSULT - SPOKE WITH ANSWERING SERVICE AND LEFT MESSAGE ON OFFICE ANSWERING MACHINE 03/27/22 7912.
--- NOTE | 2022-03-27 11:14 | NUR ---
MD NOTE PT'S CONCERNED ABOUT PT HAVING FEVER - TEMP TAKEN 100.1. O2 SAT 88% ON RA, 92% ON 2L O2 NC. CALLED DR DE LEON TO INFORM HER OF VITAL SIGNS, PLUS QUESTION WHETHER PT SHOULD BE ON IVF, NO IVF TO BE INFUSING. PT MOUTH DRY, CONCERNED ABOUT POSSIBLE THRUSH, MD AWARE. CONCERNED ABOUT UTI, DR DE LEON SAID UA WAS NEGATIVE. 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
--- NOTE | 2022-03-27 14:38 | NUR ---
MD CALL SPOKE TO DR BARRIENTOS TAKING CALLS FOR DR DE LEON. MRI HAVE BEEN UNABLE TO VERIFY CARDIAC STENT INFORMATION FROM [facility], AND SAID THIS MAY TAKE A COUPLE OF DAYS. CALLED TO LET MD KNOW THAT IT IS UNLIKELY THAT MRI WILL GET DONE TODAY. ATIVAN ONE TIME DOSE WAS PRE MRI, NOT GIVEN.
--- NOTE | 2022-03-27 18:17 | NUR ---
SHIFT NOTE MR ARCE HAS BEEN ORIENTATED TO SELF TODAY. HIS SPEACH IS A LITTLE CLEARER NOW, BUT HE WAS MUMBLING AND DIFFICULT TO UNDERSTAND EARLIER. SEE PRIOR NOTE - HE HAD FEVER, O2 SATS DROPPED EARLIER, DISCUSSED MENTATION/ CHANGE OF STAUS WITH MD NOTED. HIS O2 SATS HAVE BEEN IN THE 90S ON 2L NASAL CANNULA. TEMPERATURE IMPROVED. HIS DAUGHTER IS WITH HIM HELPING HIM TO EAT NOW, HE WAS TOO DROWSY TO EAT AT LUNCHTIME. SEEN BY HIS DOCS AND SURGEON TODAY - PLAN FOR SURGERY FOR CHOLY TOMORROW, SO NPO AFTER MN. HIS FAMILY HAVE BEEN AT HIS BEDSIDE THROUGHOUT THE DAY AND ARE AWARE OF SURGERY PLANS. MRI DID NOT GET DONE TODAY, MD WAS INFORMED, THERE IS UNRESOLVED QUESTIONS ABOUT HIS CARDIAC STENTS THAT MRI ARE FOLLOWING UP REGARDING. INCONTINENT OF URINE TODAY. PT CAME TO SEE HIM, BUT HE DID NOT GET OUT OF BED DUE TO HIS POOR CONDITION TODAY. SCD HOSE ON. IVF INFUSING. BED LOW, CALL LIGHT IN REACH. BED ALARM ON.
--- NOTE | 2022-03-27 18:47 | NUR ---
ADDENDUM MR ARCE WALKED WITH 2 PERSON ASSISTANCE TO THE BATHROOM, GAIT BELT ON, USING WALKER. PUSE OX ON ROOM AIR AFTER EXERCISE WAS 92%, SO OXYGEN LEFT OFF. HE SAID HE IS IN [place], SO STILL CONFUSED, BUT HAVING APPROPRIATE CONVERSATION WITH HIS DAUGHTER.
[2022-03-28 05:29] LABS: Hematocrit 37.7 % (37.0-53.0); Hemoglobin 12.7 g/dL (13.5-17.5); Mean Corpuscular HGB 32.6 pg (26.0-34.0); Mean Corpuscular HGB Conc 33.7 g/dL (31.5-36.5); Mean Corpuscular Volume 97 fL (80-100); Mean Platelet Volume 11.1 fL (9.1-12.4); Platelet Count 121 K/mm3 (150-400); RDW Coefficient Variation 13.1 % (11.7-14.2); RDW Standard Deviation 46.7 fL (35.1-46.3); White Blood Cell Count 15.48 K/mm3 (4.00-11.30)
[2022-03-28 06:08] LABS: Bun/Creatinine Ratio 18.7 (12.0-20.0); Calcium, Blood 8.6 mg/dL (8.5-10.1); Creatinine, Blood 1.34 mg/dL (0.60-1.20); Potassium, Blood 3.6 mmol/L (3.5-5.5)
--- NOTE | 2022-03-28 07:19 | NUR ---
0662 - UPON ROUNDING NOTED PT WITHOUT RESPIRATIONS. NO HEART RATE HEARD VIA STETHOSCOPE. THIS RN AND NESHA ORTIZ, HARDY CONFIRMED ABSENCE OF BREATH SOUNDS AND HEART SOUNDS. TOD 0622 0634 - PAGED ON-CALL HOSPITALIST DR. BURNS. NOTIFIED OF @ 0772. SUPERCHARGER MECHANIC NOTIFIED WELL. 0635 - SPOKE WITH HUNTER, PTS DAUGHTER LISTED IN CHART. OFFERED TIME WITH TERRY AND USE OF [facility] [employer]. FAMILY DECLINED. PER DAUGHTER FAMILY WOULD LIKE TO DISCUSS HOME PLACEMENT. UPDATED PROFESSIONAL ATHLETE AND FAMILY TO CALL BACK WITH DECISION. POST-MORTEM CARE COMPLETE, ALL LINES REMOVED EXCEPT HD CATH IN R GROIN.
[2022-03-28 08:35] LABS: Influenza A, PCR NEGATIVE (NEGATIVE); Influenza B, PCR NEGATIVE (NEGATIVE); Resp Syncytial Virus, PCR NEGATIVE (NEGATIVE); SARS-Cov-2 (COVID-19) PCR, MMC NEGATIVE (NEGATIVE)
--- NOTE | 2022-03-28 08:49 | NUR ---
MD CALL DR DE LEON - PT NPO PRE-OP. OK TO GIVE S/S INSULIN COVERAGE THIS AM, HOLD LONG ACTING INSULIN AM DOSE TODAY PER
--- NOTE | 2022-03-28 14:04 | NUR ---
RECEIVED PT FROM RECOVERY ROOM AT 1305. PT SLEEPY, WAKES WITH VOICE. ORIENTATED TO SELF, MUMBLED SPEACH, BUT UNDERSTANDABLE. ON CPAP WITH 15L NC SUPPLIMENTAL OZYGEN WHEN HE ARRIVED, WEANED DOWN TO 8L NC SO FAR. FAMILY AT BEDSIDE. LUNGS DIMINISHED IN THE BASES. NEW PIV R FA PLACED BY OR STAFF - CALLED DR DE LEON TO CLARIFY IVF ORDER, SHE SAID TO STOP IVF. IV ANTIBIOTICS INFUSED AFTER RETURNED TO MEDICAL FLOOR WITH INS CARRIER. VSS. ABDOMEN - 4 SMALL INCISIONS. 3 GAUZE AND TEGADERM, ONE WITH DIME SIZED SEROSANG DRAINAGE, MARKED. RLQ INCISION WITH MEFLIX TAPE AND MARIO DRAIN TO BULB SXN, SMALL VOLUME BLOODY DRAINAGE TO MARIO. SCD ON. BED LOW, CALL LIGHT IN REACH
--- NOTE | 2022-03-28 17:39 | NUR ---
MR ARCE RETURNED TO MEDICAL UNIT FROM RECOVERY S/P LAP CHOLY AT 1305HRS ON CPAP WITH 15LO2. ON CONTINUOUS PULSE OX MONITOR, ATTEMTED TO WEAN DOWN TO NASAL CANNULA UNSUCCESSFUL EARLIER THIS AFTERNOON, SATS DROPPED TO 80S ON NASAL CANNULA SO BACK ONTO CPAP UNTIL NOW, RETRYING WITH NASAL CANNULA. PT HAS BEEN ENCOURAGED TO USE INCENTIVE SPIROMETER, BUT POOR EFFORT, UP OUT OF BED TO BATHROOM, AMBULATED WITH 2 PERSON ASSIST, GAIT BELT AND WALKER. + FLATUS. 4 SMALL ABDOMINAL WOUNDS, NO FRESH DRAINAGE OTHER THAN WHAT WAS MARKED EARLIER. SMALL AMT BLOODY DRAINAGE TO MARIO. BED LOW, CALL LIGHT IN REACH.
--- NOTE | 2022-03-29 05:15 | NUR ---
SHIFT SUMMARY PT DID WELL THIS EVENING. AWAKE AND ALERT EARLY IN SHIFT. PT DID FALL ASLEEP AND SLEEP WELL BUT WOKE AND WAS ABLE TO COMMUNICATE APPROPRIATELY. PT REMAINED ON 4 L VIA NC. O2 SATS IN THE MID 90'S. DENIES SOB. PT DENIED ANY ABD PAIN. ABD DRESSINGS FROM LAP ADOLFO REMAINED C/D/I. 20 MLS SEROSANGUINOUS DRAINAGE FROM MARIO DRAIN. CBG [id number] THIS EVENING. 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 [place]. PT HAD MISSED MORNING DOSE OF GLARGINE DUE TO BEING NPO FOR LAP ADOLFO. ONE TIME DOSE OF 10 UNITS GLARGINE GIVEN ALONG WITH SLIDING SCALE 6 UNITS OF NOVOLIN R. OTHERWISE NO ACUTE EVENTS. VITAL SIGNS STABLE.
[2022-03-29 05:22] LABS: Hematocrit 36.3 % (37.0-53.0); Hemoglobin 12.1 g/dL (13.5-17.5); Mean Corpuscular HGB 32.7 pg (26.0-34.0); Mean Corpuscular HGB Conc 33.3 g/dL (31.5-36.5); Mean Corpuscular Volume 98 fL (80-100); Mean Platelet Volume 11.2 fL (9.1-12.4); Platelet Count 152 K/mm3 (150-400); RDW Coefficient Variation 13.2 % (11.7-14.2); RDW Standard Deviation 47.5 fL (35.1-46.3); White Blood Cell Count 9.65 K/mm3 (4.00-11.30)
[2022-03-29 05:49] LABS: Bun/Creatinine Ratio 33.6 (12.0-20.0); Calcium, Blood 8.1 mg/dL (8.5-10.1); Creatinine, Blood 1.31 mg/dL (0.60-1.20); Potassium, Blood 3.9 mmol/L (3.5-5.5)
--- NOTE | 2022-03-29 08:26 | NUR ---
MD NOTIFY DR BARRIENTOS TO BEDSIDE, INFORMED OF HIGH BLOOD SUGAR AND THAT PT UNABLE TO TAKE PROBIOTIC DUE TO HAVING TO TAKE MEDS CRUSHED IN APPLESAUSE. RECOMMENDS YOGHURT OR FRANCESCA.
--- NOTE | 2022-03-29 10:31 | NUR ---
AM NOTE MR ARCE IS MORE ALERT TODAY, ORIENTATED TO SELF, PLACE AND DATE, OFTEN FORGETFUL IN ANSWERING QUESTIONS. DENIES ANY SOB. O2 SAT 91% ON 2L NC NOW. WENT TO 80S ON RA, SO BACK ON O2. DEEP BREATHING, IS ENCOURAGED. IVF 1L INFUSING, NEW PIV PLACED. BED LOW, BED ALARM ON, CALL LIGHT IN REACH.
--- NOTE | 2022-03-29 13:20 | NUR ---
MD CALL DR BARRIENTOS WAS NOTIFIED VIA TELEPHONE OF HIGH BLOOD GLUCOSE AT 1225. INSULIN TYPE CHANGED TO QUICK ACTING PEN BY DR BARRIENTOS, ADMINISTERED PRE LUNCH
--- NOTE | 2022-03-29 18:41 | NUR ---
SHIFT SUMMARY MR ARCE CONTINUES TO DO WELL TODAY (SEE AM NOTE). HE HAS SAT UP IN THE CHAIR FOR MUCH OF THE DAY, AMBULATED TO THE BATHROOM WITH GAIT BELT AND WALKER WITH IMPROVED STRENGTH. WEANED OFF OXYGEN WITH RA SATS GREATER THAN 90%. BLOOD GLUCOSE AT 1730 IMPROVED TO 259. MD REMOVED 3 ABDOMINAL GAUZE DRESSINGS AND STERISTRIPS ARE SAMIR, NO DRAINAGE. MARIO DRAIN SEROUS-SANGUINOUS DRAINAGE. FAMILY ARE CONCERNED ABOUT WHETHER THEY ARE ABLE TO CARE FOR MR ARCE POST DISCHARGE AND PLAN TO TALK WITH LAW EXAMINER TOMORROW ABOUT OPTIONS. BED AND CHAIR ALARM USED, PT HAS CALLED TO GET HELP BEFORE AMBULATING.
--- NOTE | 2022-03-30 04:00 | NUR ---
SHIFT SUMMARY PT SLEPT ON AND OFF THIS EVENING. ALERT AND PLEASANT. APPEARED MORE ORIENTED THIS SHIFT COMPARED TO TWO PREVIOUS SHIFTS. PT REMAINED ON RA. O2 SATS IN THE HIGH 90'S. PT DENIED ANY PAIN. DRESSINGS REMAINED C/D/I TO SURGICAL SITES FOR LAP CHOLY. MARIO DRAIN PRESENT WITH SEROSANGUINOUS DRAINAGE. NO ACUTE CHANGES THIS EVENING. VITAL SIGNS STABLE.
[2022-03-30 05:06] LABS: BASOPHILS ABSOLUTE AUTO 0.02 K/mm3 (0.00-0.23); BASOPHILS PERCENT AUTO 0 % (0-2); EOSINOPHILS PERCENT AUTO 0 % (0-6); Hematocrit 36.1 % (37.0-53.0); IMMATURE GRAN ABSOLUTE AUTO 0.09 K/mm3 (0.00-0.10); IMMATURE GRAN PERCENT AUTO 1 % (0-1); LYMPHOCYTES ABSOLUTE AUTO 1.32 K/mm3 (0.84-5.20); LYMPHOCYTES PERCENT AUTO 12 % (21-46); MONOCYTES ABSOLUTE AUTO 0.53 K/mm3 (0.16-1.47); MONOCYTES PERCENT AUTO 5 % (4-13); Mean Corpuscular HGB 32.9 pg (26.0-34.0); Mean Corpuscular HGB Conc 33.2 g/dL (31.5-36.5); Mean Corpuscular Volume 99 fL (80-100); NEUTROPHILS ABSOLUTE AUTO 8.66 K/mm3 (1.96-9.15); NEUTROPHILS PERCENT AUTO 82 % (41-73); Platelet Count 155 K/mm3 (150-400); RDW Coefficient Variation 13.5 % (11.7-14.2); RDW Standard Deviation 49.4 fL (35.1-46.3); Red Blood Cell Count 3.65 M/mm3 (4.30-5.90); White Blood Cell Count 10.62 K/mm3 (4.00-11.30)
[2022-03-30 05:30] LABS: Bun/Creatinine Ratio 36.1 (12.0-20.0); Calcium, Blood 7.8 mg/dL (8.5-10.1); Creatinine, Blood 1.22 mg/dL (0.60-1.20)
[2022-03-30] MEDS ORDERED: ONDA4 PO (17:42)
[2022-03-30] MEDS ORDERED: VISBIOME 112.51 EACH PO (17:45)
[2022-03-30] MEDS ORDERED: Norco 5-325 Ta1 EACH PO (17:46)
[2022-03-30] MEDS ORDERED: AMOCLA500 PO (17:48)
--- NOTE | 2022-03-31 06:35 | NUR ---
SHIFT SUMMARY A/O 2-3, SBA WITH FWW. DENIES PAIN OR SOB. VSS, NO ACUTE CHANGES AT THIS TIME. PLAN IS TO D/C THIS AM. BED IN LOWEST POSITION WITH CALL LIGHT IN REACH. WILL CONTINUE TO MONITOR AND REPORT TO ONCOMING RN.
== END 2022-03-31 11:00 | disposition home health service (06) | DRG 417 ==
LOC: ER 09:38 → MEDS 18:37
PROVIDERS: Emergency Medicine; Physician Assistant; Student in an Organized Health Care Education/Training Program; Surgery; ADMIT Family Medicine
PROC: 0FT44ZZ Resection of Gallbladder, Percutaneous Endoscopic Approach (ICD-10-PCS; principal; 2022-03-28 10:15)
DX: K80.00 Calculus of gallbladder with acute cholecystitis without obstruction (principal); J18.9 Pneumonia, unspecified organism; G92.8 Other toxic encephalopathy; E87.1 Hypo-osmolality and hyponatremia; J44.0 Chronic obstructive pulmonary disease with (acute) lower respiratory infection; N17.9 Acute kidney failure, unspecified; K82.A1 Gangrene of gallbladder in cholecystitis; E87.5 Hyperkalemia; K59.00 Constipation, unspecified; M54.9 Dorsalgia, unspecified; G89.29 Other chronic pain; E11.9 Type 2 diabetes mellitus without complications; Z20.822 Contact with and (suspected) exposure to COVID-19; R13.10 Dysphagia, unspecified; E86.0 Dehydration; D72.829 Elevated white blood cell count, unspecified; G40.909 Epilepsy, unspecified, not intractable, without status epilepticus; F32.A Depression, unspecified; D69.6 Thrombocytopenia, unspecified; I25.10 Atherosclerotic heart disease of native coronary artery without angina pectoris; M10.9 Gout, unspecified; Z95.5 Presence of coronary angioplasty implant and graft; Z95.1 Presence of aortocoronary bypass graft; I25.2 Old myocardial infarction; Z98.890 Other specified postprocedural states; Z90.49 Acquired absence of other specified parts of digestive tract; Z88.5 Allergy status to narcotic agent; Z88.8 Allergy status to other drugs, medicaments and biological substances; Z79.82 Long term (current) use of aspirin; Z79.4 Long term (current) use of insulin; Z79.899 Other long term (current) drug therapy
CPT/HCPCS: 0241U; 36415; 70450; 71045; 71046; 74176; 76705; 80047; 80048; 80053; 82140; 82803; 82947; 83735; 84145; 85014; 85025; 85027; 88304; 92526; 92610; 93005; 93010; 94760; 96360; 96361; 96365; 96372; 96375; 96376; 97110; 97116; 97161; 97165; 97530; 97535; 99285-25; A9270; G0378; J0295; J0696; J1100; J1650; J1815; J2370; J2405; J2543; J2704; J3010; J7030; J7040; J7060; J7120

== ENCOUNTER → 2022-05-04 | Outpatient (CLI) | payer MEDICARE, OTHER ==
[~2022-05-04] MED LIST changes: +ACETAMINOP160 MG/51 PO; +AMOCLA500 PO; +ANTIFUNGAL POWD71 GM TOP; +Norco 5-325 Ta1 EACH PO; +ONDA4 PO; +VISBIOME 112.51 EACH PO
== END | disposition home or self-care (01) ==
LOC: LAB SHORT 07:48 → PLD 07:48
DX: L57.0 Actinic keratosis (principal); L85.9 Epidermal thickening, unspecified
CPT/HCPCS: 88305

== ENCOUNTER → 2022-08-25 | Outpatient (CLI) | payer MEDICARE, OTHER ==
[~2022-08-25] MED LIST changes: +Celexa20 MG PO; +KEPPRA100 MG/1 M PO; +LACO50TA2 PO; +NOVOLOG FL100 UNIT/3 SC
[2022-08-25 11:12] LABS: BASOPHILS ABSOLUTE AUTO 0.02 K/mm3 (0.00-0.23); BASOPHILS PERCENT AUTO 0 % (0-2); EOSINOPHILS ABSOLUTE AUTO 0.25 K/mm3 (0.00-0.68); EOSINOPHILS PERCENT AUTO 4 % (0-6); Hematocrit 43.8 % (37.0-53.0); Hemoglobin 14.9 g/dL (13.5-17.5); IMMATURE GRAN ABSOLUTE AUTO 0.02 K/mm3 (0.00-0.10); IMMATURE GRAN PERCENT AUTO 0 % (0-1); LYMPHOCYTES ABSOLUTE AUTO 1.91 K/mm3 (0.84-5.20); LYMPHOCYTES PERCENT AUTO 27 % (21-46); MONOCYTES ABSOLUTE AUTO 0.53 K/mm3 (0.16-1.47); MONOCYTES PERCENT AUTO 8 % (4-13); Mean Corpuscular HGB 32.1 pg (26.0-34.0); Mean Corpuscular Volume 94 fL (80-100); Mean Platelet Volume 10.3 fL (9.1-12.4); NEUTROPHILS ABSOLUTE AUTO 4.26 K/mm3 (1.96-9.15); NEUTROPHILS PERCENT AUTO 61 % (41-73); Platelet Count 154 K/mm3 (150-400); RDW Coefficient Variation 12.8 % (11.7-14.2); RDW Standard Deviation 43.8 fL (35.1-46.3); Red Blood Cell Count 4.64 M/mm3 (4.30-5.90); White Blood Cell Count 6.99 K/mm3 (4.00-11.30)
[2022-08-25 11:21] LABS: Albumin, Blood 3.6 g/dL (3.4-5.0); Albumin/Globulin Ratio 0.9 (0.8-1.8); Bilirubin, Total 0.3 mg/dL (0.1-1.0); Bun/Creatinine Ratio 30.8 (12.0-20.0); Creatinine, Blood 1.07 mg/dL (0.60-1.20); Potassium, Blood 4.4 mmol/L (3.5-5.5); Total Protein, Blood 7.6 g/dL (6.4-8.2); Uric Acid, Blood 7.4 mg/dL (3.5-7.2)
== END ==
LOC: LAB 09:50 → LAB SHORT 09:50
PROVIDERS: Nurse Practitioner Family
DX: M25.50 Pain in unspecified joint (principal)
CPT/HCPCS: 80053; 83036; 83880; 84550; 85025; 87086

== ENCOUNTER 2022-10-08 11:12 | Emergency (ER) | payer MEDICARE, OTHER ==
[~2022-10-08] VITALS: Ht 172.7 cm; Wt 104.3 kg
[2022-10-08 12:24] LABS: Influenza A, PCR NEGATIVE (NEGATIVE); Influenza B, PCR NEGATIVE (NEGATIVE); Resp Syncytial Virus, PCR NEGATIVE (NEGATIVE); SARS-Cov-2 (COVID-19) PCR, MMC NEGATIVE (NEGATIVE)
[2022-10-08 13:07] LABS: Source, Urine Straight Cath
[2022-10-08 13:11] LABS: Appearance, Urine Clear (Clear); Bilirubin, Urine Neg (Neg); Blood, Urine Neg (Neg); Color, Urine Yellow (P-Yellow); Glucose Qualitative, Urine Neg (Neg); Ketones, Urine Neg (Neg); Leukocyte Esterase, Urine Neg (Neg); Nitrite, Urine Neg (Neg); Protein, Urine 2+ (Neg); Specific Gravity, Urine 1.015 (1.003-1.022); Urobilinogen, Urine NORM (Normal)
[2022-10-08 13:14] LABS: BASOPHILS ABSOLUTE AUTO 0.02 K/mm3 (0.00-0.23); BASOPHILS PERCENT AUTO 0 % (0-2); EOSINOPHILS ABSOLUTE AUTO 0.16 K/mm3 (0.00-0.68); EOSINOPHILS PERCENT AUTO 2 % (0-6); Hematocrit 44.6 % (37.0-53.0); Hemoglobin 15.4 g/dL (13.5-17.5); IMMATURE GRAN ABSOLUTE AUTO 0.02 K/mm3 (0.00-0.10); IMMATURE GRAN PERCENT AUTO 0 % (0-1); LYMPHOCYTES ABSOLUTE AUTO 1.25 K/mm3 (0.84-5.20); LYMPHOCYTES PERCENT AUTO 17 % (21-46); MONOCYTES ABSOLUTE AUTO 0.51 K/mm3 (0.16-1.47); MONOCYTES PERCENT AUTO 7 % (4-13); Mean Corpuscular HGB 32.5 pg (26.0-34.0); Mean Corpuscular HGB Conc 34.5 g/dL (31.5-36.5); Mean Corpuscular Volume 94 fL (80-100); Mean Platelet Volume 10.1 fL (9.1-12.4); NEUTROPHILS ABSOLUTE AUTO 5.55 K/mm3 (1.96-9.15); NEUTROPHILS PERCENT AUTO 74 % (41-73); Platelet Count 144 K/mm3 (150-400); RDW Coefficient Variation 12.4 % (11.7-14.2); Red Blood Cell Count 4.74 M/mm3 (4.30-5.90); White Blood Cell Count 7.51 K/mm3 (4.00-11.30)
[2022-10-08 13:28] LABS: White Blood Cells, Urine 0-2 /hpf (0-5)
[2022-10-08 13:29] LABS: Red Blood Cells, Urine Not Seen /hpf (0-2); Squamous Epithelial Cells Rare /hpf (Few)
[2022-10-08 13:30] LABS: Bacteria Rare /hpf; Mucus Light (0-Heavy)
[2022-10-08 13:34] LABS: Albumin, Blood 3.5 g/dL (3.4-5.0); Albumin/Globulin Ratio 0.8 (0.8-1.8); Bilirubin, Total 0.4 mg/dL (0.1-1.0); Bun/Creatinine Ratio 23.7 (12.0-20.0); Calcium, Blood 9.2 mg/dL (8.5-10.1); Creatinine, Blood 1.14 mg/dL (0.60-1.20); Globulin, Blood 4.3 g/dL (2.2-4.0); Magnesium, Blood 2.2 mg/dL (1.6-2.4); Potassium, Blood 4.6 mmol/L (3.5-5.5); Total Protein, Blood 7.8 g/dL (6.4-8.2)
== END 2022-10-08 16:15 | disposition home or self-care (01) ==
LOC: ER 11:12
PROVIDERS: Student in an Organized Health Care Education/Training Program
DX: Z04.3 Encounter for examination and observation following other accident (principal); I25.10 Atherosclerotic heart disease of native coronary artery without angina pectoris; J44.9 Chronic obstructive pulmonary disease, unspecified; I12.9 Hypertensive chronic kidney disease with stage 1 through stage 4 chronic kidney disease, or unspecified chronic kidney disease; N18.1 Chronic kidney disease, stage 1; E11.22 Type 2 diabetes mellitus with diabetic chronic kidney disease; Z88.5 Allergy status to narcotic agent; Z88.8 Allergy status to other drugs, medicaments and biological substances; Z20.822 Contact with and (suspected) exposure to COVID-19; Z91.81 History of falling
CPT/HCPCS: 0241U; 70450; 71046; 80053; 81001; 83690; 83735; 83880; 84145; 84484; 85025; 93005; 93010; J7030

== ENCOUNTER → 2022-10-29 | Outpatient (CLI) | payer MEDICARE, OTHER ==
[~2022-10-29] MED LIST changes: +ALBU90OI INH; +BENZ100A PO
== END ==
LOC: LAB SHORT 13:42
DX: R35.0 Frequency of micturition (principal)
CPT/HCPCS: 87086

== ENCOUNTER 2022-10-30 04:54 | Emergency (ER) | payer MEDICARE, OTHER ==
[~2022-10-30] VITALS: Ht 175.3 cm; Wt 104.3 kg
[~2022-10-30 04:54] MED LIST changes: -ALBU90OI INH; -BENZ100A PO
[2022-10-30 05:33] LABS: BASOPHILS ABSOLUTE AUTO 0.02 K/mm3 (0.00-0.23); BASOPHILS PERCENT AUTO 0 % (0-2); EOSINOPHILS ABSOLUTE AUTO 0.22 K/mm3 (0.00-0.68); EOSINOPHILS PERCENT AUTO 3 % (0-6); Hematocrit 41.5 % (37.0-53.0); Hemoglobin 14.4 g/dL (13.5-17.5); IMMATURE GRAN ABSOLUTE AUTO 0.01 K/mm3 (0.00-0.10); IMMATURE GRAN PERCENT AUTO 0 % (0-1); LYMPHOCYTES ABSOLUTE AUTO 0.74 K/mm3 (0.84-5.20); LYMPHOCYTES PERCENT AUTO 11 % (21-46); MONOCYTES ABSOLUTE AUTO 0.73 K/mm3 (0.16-1.47); MONOCYTES PERCENT AUTO 11 % (4-13); Mean Corpuscular HGB 32.7 pg (26.0-34.0); Mean Corpuscular HGB Conc 34.7 g/dL (31.5-36.5); Mean Corpuscular Volume 94 fL (80-100); Mean Platelet Volume 9.8 fL (9.1-12.4); NEUTROPHILS ABSOLUTE AUTO 4.82 K/mm3 (1.96-9.15); NEUTROPHILS PERCENT AUTO 74 % (41-73); Platelet Count 141 K/mm3 (150-400); RDW Coefficient Variation 12.6 % (11.7-14.2); RDW Standard Deviation 43.3 fL (35.1-46.3); White Blood Cell Count 6.54 K/mm3 (4.00-11.30)
[2022-10-30 05:59] LABS: Albumin, Blood 3.5 g/dL (3.4-5.0); Albumin/Globulin Ratio 0.8 (0.8-1.8); Bilirubin, Total 0.4 mg/dL (0.1-1.0); Bun/Creatinine Ratio 25.2 (12.0-20.0); Calcium, Blood 8.8 mg/dL (8.5-10.1); Creatinine, Blood 1.11 mg/dL (0.60-1.20); Globulin, Blood 4.3 g/dL (2.2-4.0); Potassium, Blood 4.8 mmol/L (3.5-5.5); Total Protein, Blood 7.8 g/dL (6.4-8.2)
[2022-10-30 07:33] LABS: Influenza B, PCR NEGATIVE (NEGATIVE); Resp Syncytial Virus, PCR NEGATIVE (NEGATIVE); SARS-Cov-2 (COVID-19) PCR, MMC NEGATIVE (NEGATIVE)
[2022-10-30 07:46] LABS: Influenza A, PCR POSITIVE (NEGATIVE)
[2022-10-30 09:02] LABS: Source, Urine Clean Catch
[2022-10-30 09:06] LABS: Appearance, Urine Clear (Clear); Bilirubin, Urine Neg (Neg); Blood, Urine Neg (Neg); Color, Urine Yellow (P-Yellow); Glucose Qualitative, Urine Neg (Neg); Ketones, Urine Neg (Neg); Leukocyte Esterase, Urine Neg (Neg); Nitrite, Urine Neg (Neg); Protein, Urine Neg (Neg); Specific Gravity, Urine 1.015 (1.003-1.022); Urobilinogen, Urine NORM (Normal)
[2022-10-30] MEDS ORDERED: BENZ100A PO (10:24)
[2022-10-30] MEDS ORDERED: ALBU90OI INH (10:24)
== END 2022-10-30 11:06 | disposition home or self-care (01) ==
LOC: ER 04:54
PROVIDERS: Emergency Medicine
DX: J10.1 Influenza due to other identified influenza virus with other respiratory manifestations (principal); Z88.8 Allergy status to other drugs, medicaments and biological substances; Z88.5 Allergy status to narcotic agent; Z79.899 Other long term (current) drug therapy; Z79.4 Long term (current) use of insulin; Z79.82 Long term (current) use of aspirin; I25.10 Atherosclerotic heart disease of native coronary artery without angina pectoris; E11.22 Type 2 diabetes mellitus with diabetic chronic kidney disease; M10.9 Gout, unspecified; J44.9 Chronic obstructive pulmonary disease, unspecified; I12.9 Hypertensive chronic kidney disease with stage 1 through stage 4 chronic kidney disease, or unspecified chronic kidney disease; N18.1 Chronic kidney disease, stage 1
CPT/HCPCS: 0241U; 36415; 71046; 80053; 81003; 83880; 84484; 85025; 93005; 93010; 94640; 94664; J7030

== ENCOUNTER 2022-12-21 20:57 | Observation (INO) | payer MEDICARE, OTHER ==
[~2022-12-21] VITALS: Ht 177.8 cm; Wt 102.3 kg
[~2022-12-21 20:57] MED LIST changes: +ALBU90OI INH; +BENZ100A PO; +CENTRUM SILVER1 EAC2 PO; +DOC250; +ERGO400 PO; +ESCI10 PO; +INSULIN GL100 UNIT/3 SC; +LACOSAMIDE PO; +MELA3; +POTA8; +PRED FORTE5 M1 BOTHEYES; +SENNA LAXATIVE8.6 MG; +SOLI5
[2022-12-21] MEDS ORDERED: ASPI81CH PO (21:13)
[2022-12-21] MEDS ORDERED: KEPPRA100 MG/1 M PO (21:13)
[2022-12-21] MEDS ORDERED: ACETAMINOP160 MG/51 (21:14)
[2022-12-21 21:28] LABS: BASOPHILS ABSOLUTE AUTO 0.03 K/mm3 (0.00-0.23); BASOPHILS PERCENT AUTO 0 % (0-2); EOSINOPHILS ABSOLUTE AUTO 0.26 K/mm3 (0.00-0.68); EOSINOPHILS PERCENT AUTO 3 % (0-6); Hematocrit 43.5 % (37.0-53.0); Hemoglobin 15.3 g/dL (13.5-17.5); IMMATURE GRAN ABSOLUTE AUTO 0.02 K/mm3 (0.00-0.10); IMMATURE GRAN PERCENT AUTO 0 % (0-1); LYMPHOCYTES ABSOLUTE AUTO 2.96 K/mm3 (0.84-5.20); LYMPHOCYTES PERCENT AUTO 36 % (21-46); MONOCYTES ABSOLUTE AUTO 0.67 K/mm3 (0.16-1.47); MONOCYTES PERCENT AUTO 8 % (4-13); Mean Corpuscular HGB 32.7 pg (26.0-34.0); Mean Corpuscular HGB Conc 35.2 g/dL (31.5-36.5); Mean Corpuscular Volume 93 fL (80-100); Mean Platelet Volume 10.5 fL (9.1-12.4); NEUTROPHILS ABSOLUTE AUTO 4.34 K/mm3 (1.96-9.15); NEUTROPHILS PERCENT AUTO 53 % (41-73); Platelet Count 144 K/mm3 (150-400); RDW Coefficient Variation 12.5 % (11.7-14.2); Red Blood Cell Count 4.68 M/mm3 (4.30-5.90); White Blood Cell Count 8.28 K/mm3 (4.00-11.30)
[2022-12-21 21:39] LABS: Albumin, Blood 3.5 g/dL (3.4-5.0); Albumin/Globulin Ratio 0.8 (0.8-1.8); Bilirubin, Total 0.2 mg/dL (0.1-1.0); Bun/Creatinine Ratio 20.7 (12.0-20.0); Calcium, Blood 8.9 mg/dL (8.5-10.1); Creatinine, Blood 1.16 mg/dL (0.60-1.20); Globulin, Blood 4.2 g/dL (2.2-4.0); Potassium, Blood 4.2 mmol/L (3.5-5.5); Total Protein, Blood 7.7 g/dL (6.4-8.2)
[2022-12-21 21:52] LABS: Free Thyroxine 0.68 ng/dL (0.70-1.60); Magnesium, Blood 1.9 mg/dL (1.6-2.4)
[2022-12-21 22:20] LABS: Thyroid Stimulating Hormone 2.92 uIU/mL (0.360-4.800)
--- NOTE | 2022-12-22 03:23 | NUR ---
ER ADMIT TO ICU 15: PT ARRIVED TO THE UNIT FROM ER AT 0200. PT ADMITED R/T BRADYCARDIA; HR 48-50'S WHEN BROUGHT TO THE UNTI AND SINUS BRADYCARDIA ON THE MONITOR. PT HAS NO C/O OF N/V OR CHEST PAIN AT THIS TIME. PT ON NC @ 2LPM WHEN ARRIVED; SPO2 97< AND RR 12-14. PT LUNG SOUNDS ARE CLEAR, NO C/O SOB. PT HYPOACTIVE BS IN ALL QUADRANTS; ABD IS ROUND, OBESE AND NON-TENDER. PT CURRENTLY IS INCONTINENT OF URINE WITH A DEPENDING IN PLACE. HOWEVER, PT WAS ABLE TO VOID IN URINIAL WHEN PROVIDED WITH ONE, 150 OUTPUT. PT PPP X 4. RAC, LWR PIV. PT A&O X 4 BUT CONFUSED AT TIMES; PT REPEATS STATEMENTS AND HAS TROUBLE FINDING WORDS AT TIMES. PT PLEASANT AND COOPERATING WITH CARE. CALL LIGHT IN REACH, BED LOWERED, WILL CONTINUE TO MONITOR.
[2022-12-22 03:26] LABS: BASOPHILS ABSOLUTE AUTO 0.02 K/mm3 (0.00-0.23); BASOPHILS PERCENT AUTO 0 % (0-2); EOSINOPHILS ABSOLUTE AUTO 0.15 K/mm3 (0.00-0.68); EOSINOPHILS PERCENT AUTO 2 % (0-6); Hematocrit 44.2 % (37.0-53.0); Hemoglobin 15.3 g/dL (13.5-17.5); IMMATURE GRAN ABSOLUTE AUTO 0.02 K/mm3 (0.00-0.10); IMMATURE GRAN PERCENT AUTO 0 % (0-1); LYMPHOCYTES ABSOLUTE AUTO 2.31 K/mm3 (0.84-5.20); LYMPHOCYTES PERCENT AUTO 24 % (21-46); MONOCYTES ABSOLUTE AUTO 0.65 K/mm3 (0.16-1.47); MONOCYTES PERCENT AUTO 7 % (4-13); Mean Corpuscular HGB 32.6 pg (26.0-34.0); Mean Corpuscular HGB Conc 34.6 g/dL (31.5-36.5); Mean Corpuscular Volume 94 fL (80-100); Mean Platelet Volume 10.2 fL (9.1-12.4); NEUTROPHILS ABSOLUTE AUTO 6.46 K/mm3 (1.96-9.15); NEUTROPHILS PERCENT AUTO 67 % (41-73); Platelet Count 138 K/mm3 (150-400); RDW Coefficient Variation 12.8 % (11.7-14.2); RDW Standard Deviation 43.7 fL (35.1-46.3); Red Blood Cell Count 4.69 M/mm3 (4.30-5.90); White Blood Cell Count 9.61 K/mm3 (4.00-11.30)
[2022-12-22 03:54] LABS: Bun/Creatinine Ratio 21.3 (12.0-20.0); Creatinine, Blood 1.08 mg/dL (0.60-1.20); Potassium, Blood 4.4 mmol/L (3.5-5.5)
--- NOTE | 2022-12-22 06:47 | NUR ---
SHIFT SUMMARY: NO ACUTE CHANGES THIS SHIFT. PT REMAINS SINUS JOSUE ON MONITOR WITH LOWEST HR REACHING 46. PT SLEPT SINCE ARRIVAL TO UNIT. PT HAD ONE VOID IN THE URINAL AND ONE INCONTINENT VOID. , TIFFANIE, CALLED UNIT AT 0625 AND WAS UPDATED ON PT'S STATUS, ALL QUESTIONS ANSWERED AT THIS TIME. PT'S STATES SHE WILL BRING IN PT'S MEDS FROM HOME FOR REVIEW. VSS THROUGHOUT THE SHIFT, PT USING CALL APPROPRIATELY, WILL CONTINUE TO MONITOR UNTIL ONCOMING RN ARRIVES.
--- NOTE | 2022-12-22 08:00 | NUR ---
INITIAL ASSESSMENT PATIENT LETHARGIC. PATIENT WAKES TO VERBAL STIMULI, BUT GOES BACK TO SLEEP EVEN WITH NURSE SPEAKING TO. PATIENT DOES ANSWER ALL ORIENTATION QUESTIONS CORRECTLY. PATIENT HAS HISTORY OF TBI; SLOW TO RESPOND, DIFFICULTY WITH WORD FORMULATION, REPETITIVE STATEMENTS. AFEBRILE. NO COMPLAINTS OF PAIN. PATIENT ON 2 L NC BECAUSE DESATS WITH SLEEP. PATIENT WEARS CPAP AT HOME BUT STATES THAT SHE DOES NOT THINK SETTINGS ARE CORRECT AND MAYBE THAT THE PATIENT MESSED WITH THEM AND THAT HE MAY NEED O2 BLEED IN. PATIENT WITH FIRST DEGREE HB. HR IN THE 50S. SBP 130S TO 140S. ATTENDS IN PLACE FOR BASELINE URINARY AND BOWEL INCONTINENCE. ABD MODERATELY DISTENDED, FIRM, WITH HYPERACTIVE BOWEL SOUNDS NOTED. DATE OF LAST BM UNKNOWN. R GROIN REDDENED, OTHERWISE SKIN APPEARS C/D/I. NS INFUSING AT 125 MLS/ HOUR X 1 BAG. BED LOW, CALL LIGHT IN REACH. WILL CONTINUE TO MONITOR PATIENT FREQUENTLY THROUGHOUT SHIFT.
--- NOTE | 2022-12-22 13:15 | NUR ---
SHIFT SUMMARY PATIENT REMAINED SLEEPING UNLESS DISTURBED BY NURSE. PATIENT REMAINED A AND O X 4. PATIENT REMAINED AFEBRILE. PATIENT HAD NO COMPLAINTS OF PAIN. PATIENT REMAINED ON 2 L NC. FAMILY BROUGHT IN HOME CPAP. RT IS AWARE AND STATED THEY WOULD LOOK AT IT. PATIENT DID DESAT DOWN TO 70S WHEN NC DECREASED TO 1 L. PATIENT REMAINED IN FIRST DEGREE HB, HR 40S TO 50S. SBP 120S TO 150S. NO BM THIS SHIFT. PATIENT PLACED ON CARDIAC/ SOFT DIET. PATIENT REMAINS INCONTINENT OF URINE. IVS SALINE LOCKED. POWDER ORDERED FOR REDDENED GROINS. FAMILY HAS BEEN AT BEDSIDE. EVENTS ASSOCIATE WORKING ON GETTING HOME MED LIST FROM [facility]. REPORT GIVEN TO ASSUMING PCU NURSE.
--- NOTE | 2022-12-22 16:00 | NUR ---
PATIENT SUCCESSFULLY TRANSFERRED OVER TO PCU, ROOM 11. AND DAUGHTER FOLLOWED. ALL BELONGINGS SENT WITH PATIENT.
[2022-12-22] MEDS ORDERED: ROPI.25 PO (17:29)
[2022-12-22] MEDS ORDERED: ATOR10 PO (17:32)
[2022-12-22] MEDS ORDERED: Celexa20 MG PO (17:35)
--- NOTE | 2022-12-22 17:36 | NUR ---
[facility] PT HAS BEEN RESTING QUIETLY IN ROOM SINCE ARRIVAL FROM ICU. PT AMBULATED FROM ICU TO PCU ESCORTED BY NURSING STAFF AND FAMILY. PT HAS HAD FAMILY AT BEDSIDE SINCE ARRIVAL. RT APPLIED SUPPLEMENTAL OXYGEN AT 2L BY NASAL CANNULA AND INITIATED CONTINUOUS PULSE OXIMETRY. ALL VITAL SIGNS HAVE BEEN STABLE SINCE ARRIVAL, NO CHANGES IN CONDITION.
--- NOTE | 2022-12-23 04:54 | NUR ---
SHIFT SUMMARY PT ALERT AND ORIENTED, FORGETFUL AT TIMES. BED ALARM IN PLACE. ABLE TO RE-DIRECT PT. PT USES CALL LIGHT APPROPRIATELY. SBA TO BEDSIDE COMMODE. INCONTINENT AT TIMES, ATTENDS IN PLACE. PT ABLE TO TURN SELF IN BED NEEDED. PT REFUSING CPAP D/T PRESSURE. RT NOTIFIED AND PLAN FOR PT TO WEAR O2 WHILE SLEEPING. OXYGEN SATURATION MAINTIANED ABOVE 92% ON 4 L VIA NC. PT DESATS DOWN INTO 80'S AT TIMES, ABLE TO RECOVER QUICKLY WHEN INSTRUCTED TO DEEP BREATH. CALL LIGHT WITHIN REACH. HR STABLE, JOSUE INTO 40'S AT TIMES. BP STABLE. NO CP OR PRESSURE. WILL CONT TO MONITOR UNTIL REPORT GIVEN TO DAYSKIMBERLY RN.
--- NOTE | 2022-12-23 09:23 | NUR ---
AM NOTE: PATIENT ALERT AND ORIENTED X4. FORGETFUL AT TIMES. VERY PLEASENT AND COOPERATIVE WITH CARES. DENIES PAINS THIS AM. UP TO CHAIR AND BSC WITH ONE PERSON ASSIST AND FWW. TIFFANIE UPDATED. TELE SHOWING SB-SR WITH HR 40-60'S. DENIES FEELING DIZZY WHEN STANDING UP. DENIES CHEST PAIN/PRESSURE/PALPITATIONS. BP STABLE. PPP. ON ROOM AIR WHEN AWAKE. WEARING 4L NOC LAST NIGHT. SATING MID-HIGH 90'S ON ROOM AIR. LUNGS SOUNDING CLEAR AND DIM IN BASES. DENIES SOB. DENIES ABDOMINAL PAIN/NAUSEA. EATING WNL. MEDS CRUCHES IN APPLESAUCE. UP TO BSC WITH ASSISTANCE. ATTENDS C/D. SITTING IN CHAIR AT THIS TIME. CALL LIGHT IN REACH. PLAN FOR PT EVAL AND POSSIBLE DISCHARGE. WILL CONTINUE TO MONITOR.
--- NOTE | 2022-12-23 18:16 | NUR ---
SHIFT SUMMARY: NO ACUTE CHANGES. PT EVAL AND HOME O2 EVAL COMPLETED. PLAN FOR PATIENT TO HAVE OVERNIGHT SLEEP OXIMETRY STUDY DONE TONIGHT. ORDERS IN PLACE. THIS RN CALLED TO UPDATE RT. PLAN TO START WITH CPAP ON ROOM AIR AND TITRATE O2 NEEDED. VITAL SIGNS REMAIN STABLE. TELE CONTINUES TO SHOW SB-SR WITH HR 50-60'S. DENIES OVERALL PAIN. UP TO BATHROOM WITH SBA ASSIST AND FWW. PLAN FOR POSSIBLE DC TOMORROW.
--- NOTE | 2022-12-23 22:08 | NUR ---
ASSUMPTION OF CARE 1899 THIS RN ASSUMED CARE OF PT AT 1900. REPORT FROM HARDY SONI. PT SITTING UP IN BEDSIDE RECLINER. PT A&0; PLEASANT AND COOPERATIVE WITH CARE. PT RESPONDING TO QUESTIONS APPROPRIATELY. VS; BP 128/81, SB W/HR OF 58, SPO2 93% ON RA, RR 16, TEMP 96.9. PT DENIES DIZZINESS, LIGHTHEADNESS, SOB, CP OR PRESSURE. PT DENIES FEELING LIGHTHEADED OR DIZZY WHEN GETTING UP. PT IS ABLE TO USE BATHROOM W/FWW AND MINIMAL ASSISTANCE, SUPERVISION NEEDED FOR SAFETY AND FALL PRECAUTIONS. PT INCONTINENT OF URINE AND ATTENDS IN PLACE. PT IS ABLE TO VERBALIZE NEED TO USE RESTROOM AND/OR THAT THEY ARE SOILED BUT DOES NOT ALWAYS MAKE IT TO RESTROOM IN TIME. PT DENIES ANY NEEDS OR CONCERNS AT THIS TIME. CALL LIGHT IN REACH. FALL PRECAUTIONS IN PLACE AND CHAIR ALARM ON.
--- NOTE | 2022-12-23 22:43 | NUR ---
TRANSFER NOTE PT MADE MEDICAL STATUS W/TELEMETRY AT SHIFT CHANGE. PT IS BEING TRANSFERRED TO MEDICAL FLOOR. THIS RN GAVE REPORT TO HARDY SUN. PT MADE AWARE AND PT BELONGINGS SENT WITH PT. PT TRANSFERRED VIA HOSPITAL BED. CPAP SENT WITH PT. PT ON ROOM AIR.
--- NOTE | 2022-12-24 05:58 | NUR ---
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 PT ARRIVED W/BELONGINGS, MEDS, AND CPAP MACHINE. PT ON TELE; FIRST DEGREE AV BLOCK 58 BPM. PT A/OX3; FORGETFUL. PLEASANT AND COOPERATIVE. SECOND RN SKIN ASSESSMENT COMPLETED W/LISA STALLWORTH RN. CALL TO RT WHEN PT ARRIVED TO SET UP SLEEP STUDY. PT ON SLEEP STUDY T/O THE NIGHT. THIS RN COMPLETED THE LOG WHEN ENTERING PT ROOM. PT IS A 1PSBA W/FWW AND GAIT BELT. PT IS INCONTINENT OF URINE; ATTENDS IN PLACE. PT HAS URGENCY INCONT; CAN STATE WHEN HE IS SOILED. PT HAS SOME REDNESS ON GROIN. PT IS NOT IMPULSIVE BUT FORGETFUL; FALL RISK; BED ALARM SET. CALL LIGHT ACCESSIBLE. BED LOCKED/LOW.
[2022-12-24] MEDS ORDERED: TAMS.4ER PO (10:54)
--- NOTE | 2022-12-24 13:24 | NUR ---
Patient doing well today, no acute changes to patient status. Sleep study done during the night, no O2 ordered for discharge. Discharge meds reviewed with patient & , faxed meds to [facility]. Patient verbalized understanding. Pt left medical unit at 1145.
== END 2022-12-24 11:45 | disposition home or self-care (01) ==
LOC: ER 20:57 → ICUW 20:58 → PCU 12-22 15:49 → MEDS 12-23 22:53
PROVIDERS: Emergency Medicine; Family Medicine; ADMIT Internal Medicine
DX: R00.1 Bradycardia, unspecified (principal); I95.1 Orthostatic hypotension; I44.0 Atrioventricular block, first degree; G47.33 Obstructive sleep apnea (adult) (pediatric); J44.9 Chronic obstructive pulmonary disease, unspecified; G40.909 Epilepsy, unspecified, not intractable, without status epilepticus; G25.81 Restless legs syndrome; F32.A Depression, unspecified; I25.10 Atherosclerotic heart disease of native coronary artery without angina pectoris; N18.9 Chronic kidney disease, unspecified; E11.22 Type 2 diabetes mellitus with diabetic chronic kidney disease; I12.9 Hypertensive chronic kidney disease with stage 1 through stage 4 chronic kidney disease, or unspecified chronic kidney disease; Z86.73 Personal history of transient ischemic attack (TIA), and cerebral infarction without residual deficits; I25.2 Old myocardial infarction; Z88.5 Allergy status to narcotic agent
CPT/HCPCS: 36415; 70450; 80048; 80053; 82533; 82947; 83735; 84439; 84443; 84481; 84484; 85025; 85379; 93005; 93010; 94660; 94761; 94762; 96361; 96372; 96374; 97110; 97162; 97530; 97530-CQ; 99285-25; A9270; G0378; J1650; J1815; J2405; J7030

== ENCOUNTER 2024-05-09 17:33 | Emergency (ER) | payer MEDICARE, OTHER ==
[~2024-05-09] VITALS: Ht 175.3 cm; Wt 107.5 kg
[~2024-05-09 17:33] MED LIST changes: +ACETAMINOP160 MG/51; +CLOP75 PO; +INSULANI SC; +LACOSAMIDE200 M1 PO; +ROPI.25 PO
[2024-05-09 19:07] LABS: BASOPHILS ABSOLUTE AUTO 0.01 K/mm3 (0.00-0.23); BASOPHILS PERCENT AUTO 0 % (0-2); EOSINOPHILS PERCENT AUTO 3 % (0-6); Hemoglobin 14.1 g/dL (13.5-17.5); IMMATURE GRAN ABSOLUTE AUTO 0.01 K/mm3 (0.00-0.10); IMMATURE GRAN PERCENT AUTO 0 % (0-1); LYMPHOCYTES ABSOLUTE AUTO 0.75 K/mm3 (0.84-5.20); LYMPHOCYTES PERCENT AUTO 12 % (21-46); MONOCYTES PERCENT AUTO 11 % (4-13); Mean Corpuscular HGB 32.4 pg (26.0-34.0); Mean Corpuscular HGB Conc 34.4 g/dL (31.5-36.5); Mean Corpuscular Volume 94 fL (80-100); Mean Platelet Volume 10.3 fL (9.1-12.4); NEUTROPHILS ABSOLUTE AUTO 4.49 K/mm3 (1.96-9.15); NEUTROPHILS PERCENT AUTO 73 % (41-73); Platelet Count 133 K/mm3 (150-400); RDW Standard Deviation 44.7 fL (35.1-46.3); Red Blood Cell Count 4.35 M/mm3 (4.30-5.90); White Blood Cell Count 6.16 K/mm3 (4.00-11.30)
[2024-05-09 19:41] LABS: Albumin, Blood 3.8 g/dL (3.4-5.0); Albumin/Globulin Ratio 0.9 (0.8-1.8); Bilirubin, Total 0.4 mg/dL (0.1-1.0); Calcium, Blood 8.9 mg/dL (8.5-10.1); Creatinine, Blood 1.5 mg/dL (0.60-1.20); Globulin, Blood 4.2 g/dL (2.2-4.0); Potassium, Blood 4.6 mmol/L (3.5-5.5)
[2024-05-09 20:40] LABS: Influenza A, PCR NEGATIVE (NEGATIVE); Influenza B, PCR NEGATIVE (NEGATIVE); Resp Syncytial Virus, PCR NEGATIVE (NEGATIVE)
[2024-05-09] MEDS ORDERED: NS 1,000 ML IV ONE (20:48)
[2024-05-09] MEDS ORDERED: NS 1,000 ML IV SCH (20:50)
[2024-05-09 20:58] LABS: SARS-Cov-2 (COVID-19) PCR, MMC POSITIVE (NEGATIVE)
[2024-05-09 22:00] VITALS: BP 147/80
[2024-05-09] MEDS ORDERED: RX PP Nirmatrelvir/Ritonavir (Paxlovid) 1 CO-PACKAGE (30 Tabs) UD ONE (22:05)
== END 2024-05-09 22:21 | disposition home or self-care (01) ==
LOC: ER 17:33
PROVIDERS: Physician Assistant
DX: U07.1 COVID-19 (principal)
CPT/HCPCS: 0241U; 71046; 80053; 85025; 96360; 99283-25; J7030

== ENCOUNTER 2024-07-31 18:10 | Emergency (ER) | payer MEDICARE, OTHER ==
[~2024-07-31] VITALS: Ht 175.3 cm; Wt 106.6 kg
[2024-07-31 18:58] LABS: BASOPHILS ABSOLUTE AUTO 0.02 K/mm3 (0.00-0.23); BASOPHILS PERCENT AUTO 0 % (0-2); EOSINOPHILS ABSOLUTE AUTO 0.24 K/mm3 (0.00-0.68); EOSINOPHILS PERCENT AUTO 4 % (0-6); Hematocrit 42.6 % (37.0-53.0); Hemoglobin 14.5 g/dL (13.5-17.5); IMMATURE GRAN ABSOLUTE AUTO 0.02 K/mm3 (0.00-0.10); IMMATURE GRAN PERCENT AUTO 0 % (0-1); LYMPHOCYTES ABSOLUTE AUTO 2.39 K/mm3 (0.84-5.20); LYMPHOCYTES PERCENT AUTO 36 % (21-46); MONOCYTES ABSOLUTE AUTO 0.58 K/mm3 (0.16-1.47); MONOCYTES PERCENT AUTO 9 % (4-13); Mean Corpuscular HGB 31.9 pg (26.0-34.0); Mean Corpuscular Volume 94 fL (80-100); Mean Platelet Volume 9.9 fL (9.1-12.4); NEUTROPHILS ABSOLUTE AUTO 3.34 K/mm3 (1.96-9.15); NEUTROPHILS PERCENT AUTO 51 % (41-73); Platelet Count 160 K/mm3 (150-400); RDW Coefficient Variation 13.1 % (11.7-14.2); RDW Standard Deviation 44.6 fL (35.1-46.3); Red Blood Cell Count 4.55 M/mm3 (4.30-5.90); White Blood Cell Count 6.59 K/mm3 (4.00-11.30)
[2024-07-31 19:14] LABS: Albumin, Blood 3.7 g/dL (3.4-5.0); Albumin/Globulin Ratio 0.9 (0.8-1.8); Bilirubin, Total 0.3 mg/dL (0.1-1.0); Bun/Creatinine Ratio 22.6 (12.0-20.0); Calcium, Blood 9.8 mg/dL (8.5-10.1); Creatinine, Blood 1.59 mg/dL (0.60-1.20); Globulin, Blood 4.1 g/dL (2.2-4.0); Potassium, Blood 4.3 mmol/L (3.5-5.5); Total Protein, Blood 7.8 g/dL (6.4-8.2)
[2024-07-31 19:21] LABS: International Normalized Ratio 1.07; Prothrombin Time Results 11.4 Sec (9.7-11.5)
[2024-07-31 21:29] VITALS: BP 140/86
[2024-07-31] MEDS ORDERED: NS 1,000 ML IV SCH (23:05)
[2024-07-31 23:44] LABS: Source, Urine Clean Catch
[2024-07-31 23:51] LABS: Bilirubin, Urine Neg (Neg); Blood, Urine Neg (Neg); Glucose Qualitative, Urine 4+ (Neg); Ketones, Urine Neg (Neg); Leukocyte Esterase, Urine Neg (Neg); Nitrite, Urine Neg (Neg); Protein, Urine Neg (Neg); Specific Gravity, Urine 1.015 (1.003-1.022); Urobilinogen, Urine NORM (Normal)
[2024-08-01 00:06] LABS: Appearance, Urine Clear (Clear); Color, Urine Yellow (P-Yellow)
== END 2024-08-01 00:51 | disposition home or self-care (01) ==
LOC: ER 18:10
PROVIDERS: Student in an Organized Health Care Education/Training Program
DX: Z04.3 Encounter for examination and observation following other accident (principal); R29.6 Repeated falls; E86.0 Dehydration; I25.10 Atherosclerotic heart disease of native coronary artery without angina pectoris; J44.9 Chronic obstructive pulmonary disease, unspecified; G47.33 Obstructive sleep apnea (adult) (pediatric); I25.2 Old myocardial infarction; I12.9 Hypertensive chronic kidney disease with stage 1 through stage 4 chronic kidney disease, or unspecified chronic kidney disease; N18.1 Chronic kidney disease, stage 1; E11.22 Type 2 diabetes mellitus with diabetic chronic kidney disease; Z88.5 Allergy status to narcotic agent; Z88.8 Allergy status to other drugs, medicaments and biological substances; Z79.82 Long term (current) use of aspirin; Z79.4 Long term (current) use of insulin; Z79.899 Other long term (current) drug therapy
CPT/HCPCS: 70450; 80053; 81003; 85025; 85610; 85730; J7030

== ENCOUNTER 2025-01-03 15:47 | Emergency (ER) | payer MEDICARE, OTHER ==
[~2025-01-03] VITALS: Ht 175.3 cm; Wt 97.5 kg
[2025-01-03 16:40] LABS: BASOPHILS ABSOLUTE AUTO 0.02 K/mm3 (0.00-0.23); BASOPHILS PERCENT AUTO 0 % (0-2); EOSINOPHILS ABSOLUTE AUTO 0.02 K/mm3 (0.00-0.68); EOSINOPHILS PERCENT AUTO 0 % (0-6); Hemoglobin 14.2 g/dL (13.5-17.5); IMMATURE GRAN ABSOLUTE AUTO 0.09 K/mm3 (0.00-0.10); IMMATURE GRAN PERCENT AUTO 1 % (0-1); LYMPHOCYTES ABSOLUTE AUTO 0.82 K/mm3 (0.84-5.20); LYMPHOCYTES PERCENT AUTO 11 % (21-46); MONOCYTES ABSOLUTE AUTO 0.28 K/mm3 (0.16-1.47); MONOCYTES PERCENT AUTO 4 % (4-13); Mean Corpuscular HGB Conc 34.6 g/dL (31.5-36.5); Mean Corpuscular Volume 95 fL (80-100); Mean Platelet Volume 10.3 fL (9.1-12.4); NEUTROPHILS ABSOLUTE AUTO 6.17 K/mm3 (1.96-9.15); NEUTROPHILS PERCENT AUTO 83 % (41-73); Platelet Count 141 K/mm3 (150-400); RDW Coefficient Variation 13.6 % (11.7-14.2); RDW Standard Deviation 47.2 fL (35.1-46.3)
[2025-01-03 18:20] LABS: Albumin, Blood 3.4 g/dL (3.4-5.0); Albumin/Globulin Ratio 0.8 (0.8-1.8); Bilirubin, Total 0.3 mg/dL (0.1-1.0); Bun/Creatinine Ratio 23.8 (12.0-20.0); Calcium, Blood 8.8 mg/dL (8.5-10.1); Creatinine, Blood 2.06 mg/dL (0.60-1.20); Globulin, Blood 4.1 g/dL (2.2-4.0); Potassium, Blood 5.1 mmol/L (3.5-5.5); Total Protein, Blood 7.5 g/dL (6.4-8.2)
[2025-01-03] MEDS ORDERED: RX Prepack Albuterol 1 PREPACK/6.7 GM INH UD ONE (18:55)
[2025-01-03 19:39] VITALS: BP 138/64
== END 2025-01-03 19:40 | disposition home or self-care (01) ==
LOC: ER 15:47
PROVIDERS: Student in an Organized Health Care Education/Training Program
DX: J06.9 Acute upper respiratory infection, unspecified (principal); B97.4 Respiratory syncytial virus as the cause of diseases classified elsewhere; J44.9 Chronic obstructive pulmonary disease, unspecified; E11.22 Type 2 diabetes mellitus with diabetic chronic kidney disease; I12.9 Hypertensive chronic kidney disease with stage 1 through stage 4 chronic kidney disease, or unspecified chronic kidney disease; N18.1 Chronic kidney disease, stage 1; I25.10 Atherosclerotic heart disease of native coronary artery without angina pectoris; M10.9 Gout, unspecified; G47.33 Obstructive sleep apnea (adult) (pediatric); N40.0 Benign prostatic hyperplasia without lower urinary tract symptoms; Z86.73 Personal history of transient ischemic attack (TIA), and cerebral infarction without residual deficits; Z95.5 Presence of coronary angioplasty implant and graft; Z90.49 Acquired absence of other specified parts of digestive tract; Z88.8 Allergy status to other drugs, medicaments and biological substances; Z88.5 Allergy status to narcotic agent; Z79.82 Long term (current) use of aspirin; Z79.01 Long term (current) use of anticoagulants; Z79.4 Long term (current) use of insulin; Z79.899 Other long term (current) drug therapy
CPT/HCPCS: 71046; 80053; 83880; 85025; 93005; 93010; 99284-25; A9270

== ENCOUNTER 2025-01-08 10:55 | Emergency (ER) | payer MEDICARE, OTHER ==
[~2025-01-08] VITALS: Ht 175.3 cm; Wt 106.6 kg
[2025-01-08 11:03] VITALS: BP 123/66
[2025-01-08] MEDS ORDERED: BENZ100A PO (13:21)
== END 2025-01-08 13:41 | disposition home or self-care (01) ==
LOC: ER 10:55
DX: J40 Bronchitis, not specified as acute or chronic (principal); J06.9 Acute upper respiratory infection, unspecified; I21.9 Acute myocardial infarction, unspecified; E11.8 Type 2 diabetes mellitus with unspecified complications; Z88.8 Allergy status to other drugs, medicaments and biological substances; Z88.5 Allergy status to narcotic agent; Z79.82 Long term (current) use of aspirin; Z79.899 Other long term (current) drug therapy; Z79.620 Long term (current) use of immunosuppressive biologic; Z79.83 Long term (current) use of bisphosphonates; Z79.811 Long term (current) use of aromatase inhibitors; Z79.02 Long term (current) use of antithrombotics/antiplatelets; Z79.4 Long term (current) use of insulin; Z51.81 Encounter for therapeutic drug level monitoring; Z79.2 Long term (current) use of antibiotics
CPT/HCPCS: 71046; 99283-25

== ENCOUNTER 2025-01-11 08:36 | Emergency (ER) | payer MEDICARE, OTHER ==
[~2025-01-11] VITALS: Ht 177.8 cm; Wt 90.7 kg
[2025-01-11] MEDS ORDERED: Ipratropium/Albuterol SulF 2.5-0.5MG/3 ML Amp INH ONE (09:20)
[2025-01-11 10:09] LABS: Influenza A, PCR NEGATIVE (NEGATIVE); Influenza B, PCR NEGATIVE (NEGATIVE); SARS-Cov-2 (COVID-19) PCR, MMC NEGATIVE (NEGATIVE)
[2025-01-11 10:47] LABS: BASOPHILS ABSOLUTE AUTO 0.01 K/mm3 (0.00-0.23); BASOPHILS PERCENT AUTO 0 % (0-2); EOSINOPHILS ABSOLUTE AUTO 0.25 K/mm3 (0.00-0.68); EOSINOPHILS PERCENT AUTO 4 % (0-6); Hematocrit 39.9 % (37.0-53.0); Hemoglobin 13.6 g/dL (13.5-17.5); IMMATURE GRAN ABSOLUTE AUTO 0.04 K/mm3 (0.00-0.10); IMMATURE GRAN PERCENT AUTO 1 % (0-1); LYMPHOCYTES ABSOLUTE AUTO 1.98 K/mm3 (0.84-5.20); LYMPHOCYTES PERCENT AUTO 28 % (21-46); MONOCYTES ABSOLUTE AUTO 0.54 K/mm3 (0.16-1.47); MONOCYTES PERCENT AUTO 8 % (4-13); Mean Corpuscular HGB 32.5 pg (26.0-34.0); Mean Corpuscular HGB Conc 34.1 g/dL (31.5-36.5); Mean Corpuscular Volume 95 fL (80-100); Mean Platelet Volume 10.8 fL (9.1-12.4); NEUTROPHILS ABSOLUTE AUTO 4.28 K/mm3 (1.96-9.15); NEUTROPHILS PERCENT AUTO 60 % (41-73); Platelet Count 129 K/mm3 (150-400); RDW Coefficient Variation 13.2 % (11.7-14.2); RDW Standard Deviation 46.2 fL (35.1-46.3); Red Blood Cell Count 4.19 M/mm3 (4.30-5.90)
[2025-01-11 11:02] LABS: Bun/Creatinine Ratio 24.1 (12.0-20.0); Calcium, Blood 9.1 mg/dL (8.5-10.1); Creatinine, Blood 1.41 mg/dL (0.60-1.20); Potassium, Blood 5.2 mmol/L (3.5-5.5)
[2025-01-11 11:05] LABS: Resp Syncytial Virus, PCR POSITIVE (NEGATIVE)
[2025-01-11] MEDS ORDERED: BENZ100A PO (11:59)
[2025-01-11 12:00] VITALS: BP 157/81
== END 2025-01-11 12:15 | disposition home or self-care (01) ==
LOC: ER 08:36
PROVIDERS: Emergency Medicine
DX: J21.0 Acute bronchiolitis due to respiratory syncytial virus (principal); J44.9 Chronic obstructive pulmonary disease, unspecified; I25.10 Atherosclerotic heart disease of native coronary artery without angina pectoris; E11.22 Type 2 diabetes mellitus with diabetic chronic kidney disease; I12.9 Hypertensive chronic kidney disease with stage 1 through stage 4 chronic kidney disease, or unspecified chronic kidney disease; N18.1 Chronic kidney disease, stage 1; G47.33 Obstructive sleep apnea (adult) (pediatric); Z86.73 Personal history of transient ischemic attack (TIA), and cerebral infarction without residual deficits; Z95.5 Presence of coronary angioplasty implant and graft; Z88.5 Allergy status to narcotic agent; Z88.8 Allergy status to other drugs, medicaments and biological substances; Z79.4 Long term (current) use of insulin; Z79.82 Long term (current) use of aspirin; Z79.02 Long term (current) use of antithrombotics/antiplatelets; Z79.899 Other long term (current) drug therapy; I25.2 Old myocardial infarction
CPT/HCPCS: 0241U; 71046; 80048; 85025; 93005; 93010; 94640; 94664; 99284-25

== ENCOUNTER 2025-01-15 21:14 | Inpatient (IN) | payer OTHER, MEDICARE ==
[~2025-01-15] VITALS: Ht 175.3 cm; Wt 104.3 kg
[2025-01-15 22:13] LABS: BASOPHILS ABSOLUTE AUTO 0.03 K/mm3 (0.00-0.23); BASOPHILS PERCENT AUTO 0 % (0-2); EOSINOPHILS ABSOLUTE AUTO 0.16 K/mm3 (0.00-0.68); EOSINOPHILS PERCENT AUTO 1 % (0-6); Hematocrit 39.1 % (37.0-53.0); Hemoglobin 13.4 g/dL (13.5-17.5); IMMATURE GRAN ABSOLUTE AUTO 0.05 K/mm3 (0.00-0.10); IMMATURE GRAN PERCENT AUTO 0 % (0-1); LYMPHOCYTES ABSOLUTE AUTO 1.44 K/mm3 (0.84-5.20); LYMPHOCYTES PERCENT AUTO 9 % (21-46); MONOCYTES ABSOLUTE AUTO 1.26 K/mm3 (0.16-1.47); MONOCYTES PERCENT AUTO 8 % (4-13); Mean Corpuscular HGB 32.4 pg (26.0-34.0); Mean Corpuscular HGB Conc 34.3 g/dL (31.5-36.5); Mean Corpuscular Volume 94 fL (80-100); Mean Platelet Volume 10.2 fL (9.1-12.4); NEUTROPHILS ABSOLUTE AUTO 13.11 K/mm3 (1.96-9.15); NEUTROPHILS PERCENT AUTO 82 % (41-73); Platelet Count 121 K/mm3 (150-400); RDW Coefficient Variation 13.3 % (11.7-14.2); RDW Standard Deviation 45.9 fL (35.1-46.3); Red Blood Cell Count 4.14 M/mm3 (4.30-5.90); White Blood Cell Count 16.05 K/mm3 (4.00-11.30)
[2025-01-15 22:35] LABS: Albumin, Blood 3.4 g/dL (3.4-5.0); Albumin/Globulin Ratio 0.8 (0.8-1.8); Bilirubin, Total 0.5 mg/dL (0.1-1.0); Bun/Creatinine Ratio 18.6 (12.0-20.0); Creatinine, Blood 1.4 mg/dL (0.60-1.20); Globulin, Blood 4.1 g/dL (2.2-4.0); Potassium, Blood 4.3 mmol/L (3.5-5.5); Total Protein, Blood 7.5 g/dL (6.4-8.2)
[2025-01-15 23:07] LABS: Influenza A, PCR NEGATIVE (NEGATIVE); Influenza B, PCR NEGATIVE (NEGATIVE); Resp Syncytial Virus, PCR NEGATIVE (NEGATIVE); SARS-Cov-2 (COVID-19) PCR, MMC NEGATIVE (NEGATIVE)
[2025-01-15] MEDS ORDERED: CefTRIAXone Sodium 1,000 MG in NS 100 ML IV ONE (23:55)
[2025-01-15] MEDS ORDERED: Azithromycin 500 MG in NS 250 ML IV ONE (23:55)
[2025-01-16 00:22] LABS: Source, Urine Clean Catch
[2025-01-16 00:29] LABS: Appearance, Urine Clear (Clear); Bilirubin, Urine Neg (Neg); Blood, Urine Neg (Neg); Color, Urine Yellow (P-Yellow); Glucose Qualitative, Urine 4+ (Neg); Ketones, Urine Neg (Neg); Leukocyte Esterase, Urine Neg (Neg); Nitrite, Urine Neg (Neg); Protein, Urine Neg (Neg); Specific Gravity, Urine 1.005 (1.003-1.022); Urobilinogen, Urine NORM (Normal); pH, Urine 6.5 (5.0-8.0)
[2025-01-16] MEDS ORDERED: FLU VACC TS2024-25(6MOS UP)/PF 45 MCG/0.5 ML SYRINGE IM ONE (01:15)
[2025-01-16] MEDS ORDERED: Metoclopramide HCl 5MG / ML 2ML Vial IV PRN (01:15)
[2025-01-16] MEDS ORDERED: Magnesium Hydroxide Conc 10 ML UDC PO PRN (01:20)
[2025-01-16] MEDS ORDERED: NS 1,000 ML IV SCH (02:00)
[2025-01-16] MEDS ORDERED: Insulin Glargine-Yfgn 100 Unit/mL 3 ML SYR SC SCH (02:00)
[2025-01-16 04:29] LABS: BASOPHILS ABSOLUTE AUTO 0.02 K/mm3 (0.00-0.23); BASOPHILS PERCENT AUTO 0 % (0-2); EOSINOPHILS PERCENT AUTO 1 % (0-6); Hematocrit 38.5 % (37.0-53.0); Hemoglobin 13.2 g/dL (13.5-17.5); IMMATURE GRAN ABSOLUTE AUTO 0.06 K/mm3 (0.00-0.10); IMMATURE GRAN PERCENT AUTO 0 % (0-1); LYMPHOCYTES ABSOLUTE AUTO 1.93 K/mm3 (0.84-5.20); LYMPHOCYTES PERCENT AUTO 12 % (21-46); MONOCYTES ABSOLUTE AUTO 1.22 K/mm3 (0.16-1.47); MONOCYTES PERCENT AUTO 7 % (4-13); Mean Corpuscular HGB 32.5 pg (26.0-34.0); Mean Corpuscular HGB Conc 34.3 g/dL (31.5-36.5); Mean Corpuscular Volume 95 fL (80-100); Mean Platelet Volume 10.3 fL (9.1-12.4); NEUTROPHILS ABSOLUTE AUTO 13.22 K/mm3 (1.96-9.15); NEUTROPHILS PERCENT AUTO 80 % (41-73); Platelet Count 121 K/mm3 (150-400); RDW Coefficient Variation 13.4 % (11.7-14.2); RDW Standard Deviation 46.2 fL (35.1-46.3); Red Blood Cell Count 4.06 M/mm3 (4.30-5.90); White Blood Cell Count 16.55 K/mm3 (4.00-11.30)
[2025-01-16 04:50] LABS: Magnesium, Blood 2.1 mg/dL (1.6-2.4)
[2025-01-16 04:51] LABS: Calcium, Blood 8.6 mg/dL (8.5-10.1); Creatinine, Blood 1.33 mg/dL (0.60-1.20); Potassium, Blood 4.6 mmol/L (3.5-5.5)
[2025-01-16] MEDS ORDERED: Insulin Human Lispro 100 Units/ML 3ML Syringe SC SCH ×2 (07:30→08:30)
[2025-01-16] MEDS ORDERED: Lactobacil 2-S.Thermo-Bifido 1 1 Cap PO SCH (09:00)
[2025-01-16] MEDS ORDERED: Sennosides 8.6 MG Tab PO SCH (09:00)
[2025-01-16] MEDS ORDERED: Heparin Sodium 5000 Units/ML 1ML MDV SC SCH (09:00)
[2025-01-16] MEDS ORDERED: Sennosides 8.6 MG Tab PO ONE (11:30)
[2025-01-16] MEDS ORDERED: Lactobacil 2-S.Thermo-Bifido 1 1 Cap PO ONE (11:30)
[2025-01-16] MEDS ORDERED: Heparin Sodium,Porcine 5,000 UNIT/0.5 ML SDV SC ONE (11:30)
[2025-01-16] MEDS ORDERED: ALBU90OI INH (12:08)
[2025-01-16] MEDS ORDERED: ACETAMINOP160 MG/53 PO (12:08)
[2025-01-16] MEDS ORDERED: DOCU100 PO (12:09)
[2025-01-16] MEDS ORDERED: Celexa20 MG PO (12:09)
[2025-01-16] MEDS ORDERED: ASMANEX HFA13 G4 INH (12:09)
[2025-01-16] MEDS ORDERED: [UNRECOGNIZED DRUG - CODE] PO (12:09)
[2025-01-16] MEDS ORDERED: LevETIRAcetam 100 MG/ML 5ML ORAL SYR PO ONE (12:10)
[2025-01-16] MEDS ORDERED: INSULIN AS100 UNIT/6 SC (12:12)
[2025-01-16] MEDS ORDERED: JARDIANCE10 MG PO (12:12)
[2025-01-16] MEDS ORDERED: VIMPAT10 MG/110 PO (12:12)
[2025-01-16] MEDS ORDERED: BASAGLAR K100 UNIT/3 SC (12:13)
[2025-01-16] MEDS ORDERED: KEPPRA100 MG/11 PO (12:14)
[2025-01-16] MEDS ORDERED: GENTLE LAX400 MG/5 M PO (12:14)
[2025-01-16] MEDS ORDERED: NOVOLIN R100 UNIT/2 (12:15)
[2025-01-16] MEDS ORDERED: MYRBETRIQ25 MG PO (12:15)
[2025-01-16] MEDS ORDERED: METFORMIN HCL500 M3 PO (12:15)
[2025-01-16] MEDS ORDERED: ROSUVASTATIN CA10 MG PO (12:16)
[2025-01-16] MEDS ORDERED: Ropinirole HCl0.5 MG PO (12:16)
[2025-01-16] MEDS ORDERED: TRIDERM28.4 GM TOP (12:16)
[2025-01-16] MEDS ORDERED: Acetaminophen 160MG / 5ML 10.15 UDC PO PRN (13:00)
[2025-01-16] MEDS ORDERED: Mometasone Furoate Inhaler 220 mcg 14 ACT INH SCH (13:00)
[2025-01-16] MEDS ORDERED: Lacosamide 50 MG Tablet PO ONE ×2 (13:05→13:35)
[2025-01-16 13:46] VITALS: BP 151/73
[2025-01-16] MEDS ORDERED: Lacosamide 50 MG/5 ML Oral Solution 5ML PO ONE (14:30)
[2025-01-16 15:12] VITALS: BP 133/64
--- NOTE | 2025-01-16 17:55 | NUR ---
SHIFT NOTE: PT TRANSFERED TO BED FROM ER KIMAL WITH 1P ASSIST. HE IS A/OX3. HE IS A POOR HISTORIAN AND HAS TROUBLE FINDING HIS WORDS. HIS IS AT BEDSIDE AND HELPS ANSWERS QUESTIONS. SHE HAS AGREED TO STAY THE NIGHT STATING THAT THE PATIENT GETS AGGITATED WHEN SHE GOES HOME. HE IS ON 2L NC TO MAINTAIN SPO2>90%. HE IS INCONT WITH A PUREWICK SET UP TO SUCTION. HE IS CONT OF BM AND HAD 1 LARGE FORMED. HE IS WEAK AND REQUIRES 1 PERSON ASSIST FOR TRANSFERS. CALL LIGHT IN REACH, BED IN LOWEST POSITION WITH BEDARLARM ON.
[2025-01-16] MEDS ORDERED: Ampicillin Sod/Sulbactam Sod 1.5 GM in NS 100 ML IV SCH (18:00)
[2025-01-16 19:26] VITALS: BP 142/62
[2025-01-16] MEDS ORDERED: Lacosamide 50 MG/5 ML Oral Solution 5ML PO SCH (21:00)
[2025-01-16] MEDS ORDERED: LevETIRAcetam 100 MG/ML 5ML ORAL SYR PO SCH (21:00)
[2025-01-16] MEDS ORDERED: Triamcinolone Acet 0.1% Cream 15 gm TOP SCH (21:00)
[2025-01-16] MEDS ORDERED: Azithromycin 250 MG Tab PO SCH (21:00)
[2025-01-16] MEDS ORDERED: rOPINIRole HCl 0.25 MG Tab PO SCH (21:00)
[2025-01-16] MEDS ORDERED: NS 250 ML IV PRN (22:15)
--- NOTE | 2025-01-17 04:37 | NUR ---
SHIFT SUMMARY 84 YR M ADMITTED ON 01/16/25. FULL CODE. NO ACUTE CHANGES THIS SHIFT. PT HAS BEEN CONTINENT FOR ENTIRE SHIFT AND CALLS APPROPRIATELY FOR ASSISTANCE. HE IS A 1 PERSON ASSIST. NO C/O PAIN OR DISCOMFORT THIS SHIFT. PT'S STAYED IN THE ROOM WITH HIM OVERNIGHT. O2 SATS HAVE REMAINED WNL. WILL CONTINUE TO MONITOR. BED IN LOW POSITION AND CALL LIGHT IN REACH.
[2025-01-17 05:43] VITALS: BP 130/61
[2025-01-17 07:48] VITALS: BP 130/64
[2025-01-17] MEDS ORDERED: Empagliflozin 10 MG TAB PO SCH (09:00)
[2025-01-17] MEDS ORDERED: Rosuvastatin Calcium 10 MG Tab PO SCH (09:00)
[2025-01-17] MEDS ORDERED: Citalopram Hydrobromide 20 MG Tab PO SCH (09:00)
[2025-01-17] MEDS ORDERED: Ipratropium/Albuterol SulF 2.5-0.5MG/3 ML Amp INH SCH (10:00)
[2025-01-17 15:22] VITALS: BP 118/64
--- NOTE | 2025-01-17 17:19 | NUR ---
PT IS AOX4 AND COOEPERATIVE OF CARE. PT HAS BEEN ABLE TO BE A ONE PERSON ASSIST TO CHAIR AND HAS BEEN TRYING TO SIT UP. PT HAS REPORTED HIS NECK HURTING ON RIGHT SIDE LIKE THE MUSCLE IS TIGHT. PT HAS BEEN TREATED PER EMAR AND DR HIGHTOWER WAS NOTIFIED AND ADDED MEDICATION TO EMAR. PT CURRENTLY VISITING WITH CALL LIGHT IS IN REACH WILL CONTINUE TO MONITOR.
[2025-01-17] MEDS ORDERED: Diclofenac Sodium 100 GM TUBE TOP PRN (17:20)
[2025-01-17 19:47] VITALS: BP 158/71
[2025-01-18 03:10] VITALS: BP 133/68
[2025-01-18] MEDS ORDERED: TraMADol HCl 50 MG Tab PO ONE (03:35)
[2025-01-18 05:11] LABS: Base Excess Venous -0.5 mmol/L; Bicarbonate Venous 24.5 mmol/L (24.0-30.0); PCO2 Venous 33.5 mmHg (38-42); pH Blood Venous 7.45 (7.34-7.37)
[2025-01-18 05:48] LABS: BASOPHILS ABSOLUTE AUTO 0.02 K/mm3 (0.00-0.23); BASOPHILS PERCENT AUTO 0 % (0-2); EOSINOPHILS ABSOLUTE AUTO 0.17 K/mm3 (0.00-0.68); EOSINOPHILS PERCENT AUTO 2 % (0-6); Hematocrit 35.3 % (37.0-53.0); Hemoglobin 12.1 g/dL (13.5-17.5); IMMATURE GRAN ABSOLUTE AUTO 0.05 K/mm3 (0.00-0.10); IMMATURE GRAN PERCENT AUTO 1 % (0-1); LYMPHOCYTES ABSOLUTE AUTO 1.26 K/mm3 (0.84-5.20); LYMPHOCYTES PERCENT AUTO 12 % (21-46); MONOCYTES ABSOLUTE AUTO 0.82 K/mm3 (0.16-1.47); MONOCYTES PERCENT AUTO 8 % (4-13); Mean Corpuscular HGB 32.5 pg (26.0-34.0); Mean Corpuscular HGB Conc 34.3 g/dL (31.5-36.5); Mean Corpuscular Volume 95 fL (80-100); Mean Platelet Volume 10.3 fL (9.1-12.4); NEUTROPHILS ABSOLUTE AUTO 8.26 K/mm3 (1.96-9.15); NEUTROPHILS PERCENT AUTO 78 % (41-73); Platelet Count 124 K/mm3 (150-400); RDW Coefficient Variation 13.2 % (11.7-14.2); RDW Standard Deviation 45.9 fL (35.1-46.3); Red Blood Cell Count 3.72 M/mm3 (4.30-5.90); White Blood Cell Count 10.58 K/mm3 (4.00-11.30)
[2025-01-18 06:14] LABS: Albumin, Blood 2.6 g/dL (3.4-5.0); Albumin/Globulin Ratio 0.6 (0.8-1.8); Bilirubin, Total 0.5 mg/dL (0.1-1.0); Calcium, Blood 8.7 mg/dL (8.5-10.1); Creatinine, Blood 1.4 mg/dL (0.60-1.20); Globulin, Blood 4.3 g/dL (2.2-4.0); Potassium, Blood 3.8 mmol/L (3.5-5.5); Total Protein, Blood 6.9 g/dL (6.4-8.2)
[2025-01-18 07:51] VITALS: BP 121/63
--- NOTE | 2025-01-18 08:01 | NUR ---
Patient is alert and oriented most of shift. Did wake up sl confused in the middle of the night but easily reoriented. Pt had a large BM at the beginning of shift on the BSC. Abdomen is large and rounded but more soft. Lungs were diminished in bases. O2 2L roomair is baseline.Sats mid 90"s. Pt's main complaint is RT neck pain. Tylenol was a little helpful but the tramadol 50mg helped and he was able to rest better. Pt is incontinent of urine. uses call light and able to make needs known.
[2025-01-18] MEDS ORDERED: Albuterol 2.5 MG/3 ML VIAL INH PRN (10:45)
[2025-01-18 16:00] VITALS: BP 119/72
--- NOTE | 2025-01-18 19:31 | NUR ---
SHIFT SUMMARY PT A&OX4. PT ADMITTED FOR PNEUMONIA. PT REPORTS NO SOB/CHEST DISCOMFORT. PT ON 3L O2 WITH N/C, CONT PULSE OX IN PLACE, SPO2 IS 93%. PT IS INC SOMETIMES, HAS ATTENDS ON. CHANGED BLOOD SUGAR ORDERS TO TWICE DAILY. RESPIRATORY THERAPY COMES SEES PT. PT TAKES MEDS CRUSHED WITH APPLESAUCE. PT UP IN CHAIR TWICE TODAY. PT AT BEDSIDE. CHANGED PT DIET TO SOFT & BITE SIZED LEVEL 6, PER PT REQUEST. PT IN CHAIR, PT WORKED WITH PHYSICAL THERAPY TODAY, THEY RECOMENDED PT IS SBA TO BSC. VSS. CALL LIGHT IN REACH.
[2025-01-18 20:40] VITALS: BP 144/78
--- NOTE | 2025-01-19 01:14 | NUR ---
Patient requested medication for cough, contacted MD. MD ordered Teslon Pearls 200mg PO TID PRN for cough.
[2025-01-19] MEDS ORDERED: Benzonatate 100 MG Cap PO PRN (01:15)
[2025-01-19 03:40] VITALS: BP 118/64
--- NOTE | 2025-01-19 04:40 | NUR ---
No Acute chagnes over night. Patient on 2L O2 NC. Patient denies chest pain, SOB and N/V. Patient SBA to bedside commode. Patient IV AXB infused. Patient is AxO X 4. Will continue to monitor until day shift resumes shift.
[2025-01-19 06:48] LABS: BASOPHILS ABSOLUTE AUTO 0.02 K/mm3 (0.00-0.23); BASOPHILS PERCENT AUTO 0 % (0-2); EOSINOPHILS ABSOLUTE AUTO 0.32 K/mm3 (0.00-0.68); EOSINOPHILS PERCENT AUTO 4 % (0-6); Hematocrit 36.2 % (37.0-53.0); Hemoglobin 12.3 g/dL (13.5-17.5); IMMATURE GRAN ABSOLUTE AUTO 0.02 K/mm3 (0.00-0.10); IMMATURE GRAN PERCENT AUTO 0 % (0-1); LYMPHOCYTES ABSOLUTE AUTO 1.17 K/mm3 (0.84-5.20); LYMPHOCYTES PERCENT AUTO 14 % (21-46); MONOCYTES ABSOLUTE AUTO 0.67 K/mm3 (0.16-1.47); MONOCYTES PERCENT AUTO 8 % (4-13); Mean Corpuscular HGB 32.6 pg (26.0-34.0); Mean Corpuscular Volume 96 fL (80-100); Mean Platelet Volume 10.1 fL (9.1-12.4); NEUTROPHILS ABSOLUTE AUTO 6.01 K/mm3 (1.96-9.15); NEUTROPHILS PERCENT AUTO 73 % (41-73); Platelet Count 143 K/mm3 (150-400); RDW Coefficient Variation 13.2 % (11.7-14.2); RDW Standard Deviation 46.6 fL (35.1-46.3); Red Blood Cell Count 3.77 M/mm3 (4.30-5.90); White Blood Cell Count 8.21 K/mm3 (4.00-11.30)
[2025-01-19 07:12] VITALS: BP 139/59
[2025-01-19 07:24] LABS: Bun/Creatinine Ratio 20.9 (12.0-20.0); Calcium, Blood 8.9 mg/dL (8.5-10.1); Creatinine, Blood 1.34 mg/dL (0.60-1.20); Free Thyroxine 1.02 ng/dL (0.70-1.60); Potassium, Blood 4.2 mmol/L (3.5-5.5); Thyroid Stimulating Hormone 3.45 uIU/mL (0.360-4.800)
[2025-01-19] MEDS ORDERED: Ampicillin Sod/Sulbactam Sod 1.5 GM in NS 100 ML IV SCH (15:00)
[2025-01-19 15:48] VITALS: BP 142/65
--- NOTE | 2025-01-19 18:47 | NUR ---
SHIFT SUMMARY PT A&OX4, WITH FORGETFULLNESS. PT IMPULSIVE AT TIMES. PT ADMITTED DUE TO PNEUMONIA. PT AT THE START OF SHIFT PULLED IV. NIGHT RN, ATTEMPTED TO PUT IN NEW IV AND WASNT ABLE TO, CHARGE NURSE PUT IN NEW IV. PT REPORTS SOME PAIN PAIN MANAGED PER EMAR, PAIN SEEMED TO HAVE IMPROVEMENT PT ON 3L OF O2 VIA N/C. CONT PULSE OX ON, SPO2 IS 92%. PT REPORTS ROOM AIR AT BASE. PT INC AT TIMES, HAS ATTENDS ON. PT WORKED WITH PHYSICAL THERAPY TODAY. PT TAKES MEDS CRUSHED IN APPLESAUCE. PT UP IN CHAIR TODAY. CHAIR ALARM WENT OFF MULTIPLE TIMES DUE TO IMPULSIVITY. PT IN BED, AT BEDSIDE. CALL LIGHT IN REACH. VSS.
[2025-01-19 19:34] VITALS: BP 152/79
[2025-01-20 03:48] VITALS: BP 143/69
--- NOTE | 2025-01-20 05:07 | NUR ---
No acute changes over night. Patient IV ABX infused. Patient denied chest pain, SOB, and N/V. Patient is 1A to bedside commode. Patient currently on 1L O2 NC. Will continue to monitor until day shift resumes cares.
[2025-01-20 07:43] VITALS: BP 146/56
--- NOTE | 2025-01-20 09:00 | NUR ---
pt laying in bed with eyes closed, in to visit, pt wakes easily but sleepy. a/ox3, forgetful, follows commands well, states he's doing ok right now, took po meds with applesauce, is on 1 liter for comfort, lungs are course in upper hendricks, dim in bases, resp even and unlabored, no cough noted, hrr, no edema noted, ppp+1, cap refill<3 sec, vs stable, afebrile, piv to laureano site is clear and patent, btx4, abd flat soft nontender, voids via condom cath, skin c/w/d, maew, weak, is able to ambulate with walker with one person assist, needs a lot of direction, marcos, call light in reach.
[2025-01-20] MEDS ORDERED: TiZANidine HCl 4 MG Tab PO PRN (15:50)
[2025-01-20] MEDS ORDERED: Naproxen 500 MG Tab PO PRN (16:00)
[2025-01-20 16:04] VITALS: BP 148/63
--- NOTE | 2025-01-20 19:17 | NUR ---
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 Maldonado recieved orders for muscle relaxant and naprosyn, this was given, with good relief but made him very sleepy. in to visit bianca, call light in reach.
[2025-01-20 20:56] VITALS: BP 100/55
[2025-01-20] MEDS ORDERED: Insulin Human Lispro 100 Units/ML 3ML Syringe SC SCH (21:30)
--- NOTE | 2025-01-20 23:26 | NUR ---
MD notified of Patient's blood sugar. MD ordered medium sliding scale Humalog.
[2025-01-21 03:35] VITALS: BP 103/54
--- NOTE | 2025-01-21 05:07 | NUR ---
No acute changes over night. Patient slept through out the night. Patient is a 1A. Patient confused at times. Patient IV AXB infused. Will continue to monitor until day shift resumes cares.
[2025-01-21 07:25] VITALS: BP 121/66
[2025-01-21 08:11] LABS: Calcium, Blood 9.1 mg/dL (8.5-10.1); Creatinine, Blood 1.46 mg/dL (0.60-1.20)
[2025-01-21] MEDS ORDERED: Insulin Glargine-Yfgn 100 Unit/mL 3 ML SYR SC SCH (09:00)
[2025-01-21] MEDS ORDERED: Amoxicillin/Clavulanate K 875 MG Tab PO SCH (09:00)
--- NOTE | 2025-01-21 10:42 | NUR ---
pt laying in bed with at bedside assisting him with breakfast, a/ox3 forgetful, cooperative with care, follows commands well, reports neck pain, lungs are clear in upper hendricks, dim in bases, resp even and unlabored, no cough noted, hrr, no edema noted, ppp+1, cap refill<3 sec, vs stable, afebrile, piv to laureano, site is clear and patent, btx4, abd flat soft nontender, voids via condom cath, clear yellow urine, skin c/w/d, marcos martini, call light in reach.
[2025-01-21] MEDS ORDERED: LEVE500 PO (12:03)
[2025-01-21] MEDS ORDERED: Tessalon200 MG PO (12:05)
[2025-01-21] MEDS ORDERED: JARDIANCE10 MG PO (12:05)
[2025-01-21] MEDS ORDERED: NAPR500 PO (12:06)
[2025-01-21] MEDS ORDERED: META800 PO (12:06)
[2025-01-21] MEDS ORDERED: Triamcinolone A15 G3 TOP (12:07)
[2025-01-21] MEDS ORDERED: TAMS.4ER PO (12:09)
--- NOTE | 2025-01-21 15:00 | NUR ---
pt had neck xray, is up in wheelchair, in room packing up, went over discharge instructions with her, and pt. they verbalized understanding, new meds faxed to [facility], and [facility], iv removed intact, left via wheelchair with transportation lead in attendence, call light in reach.
== END 2025-01-21 15:19 | disposition home health service (06) | DRG 871 ==
LOC: ER 21:14 → ERHOLD 01-16 00:12 → MEDS 01-16 00:12
PROVIDERS: Family Medicine; Internal Medicine; Student in an Organized Health Care Education/Training Program; ADMIT Internal Medicine
DX: A41.9 Sepsis, unspecified organism (principal); J18.9 Pneumonia, unspecified organism; J96.01 Acute respiratory failure with hypoxia; J44.0 Chronic obstructive pulmonary disease with (acute) lower respiratory infection; M54.2 Cervicalgia; E11.22 Type 2 diabetes mellitus with diabetic chronic kidney disease; N18.30 Chronic kidney disease, stage 3 unspecified; I12.9 Hypertensive chronic kidney disease with stage 1 through stage 4 chronic kidney disease, or unspecified chronic kidney disease; G47.33 Obstructive sleep apnea (adult) (pediatric); G40.909 Epilepsy, unspecified, not intractable, without status epilepticus; I25.10 Atherosclerotic heart disease of native coronary artery without angina pectoris; Z95.5 Presence of coronary angioplasty implant and graft; M54.9 Dorsalgia, unspecified; G89.29 Other chronic pain; G25.81 Restless legs syndrome; R33.9 Retention of urine, unspecified; M10.9 Gout, unspecified; Z90.49 Acquired absence of other specified parts of digestive tract; Z90.89 Acquired absence of other organs; Z88.8 Allergy status to other drugs, medicaments and biological substances; Z79.82 Long term (current) use of aspirin; Z79.02 Long term (current) use of antithrombotics/antiplatelets; Z79.4 Long term (current) use of insulin; Z79.899 Other long term (current) drug therapy; I25.2 Old myocardial infarction
CPT/HCPCS: 0241U; 36415; 71045; 72040; 76770; 80048; 80053; 81003; 82803; 82947; 83605; 83735; 83880; 84145; 84439; 84443; 84484; 85025; 93005; 93010; 94640; 94664; 94762; 96361; 96365; 96375; 97116; 97161; 97530; 99285-25; A9270; G0378; J0295; J0456; J0696; J1644; J1815; J7030; J7050

== ENCOUNTER → 2025-03-05 | Outpatient (CLI) | payer MEDICARE, OTHER ==
[~2025-03-05] MED LIST changes: +ACETAMINOP160 MG/53 PO; +ASMANEX HFA13 G4 INH; +GENTLE LAX400 MG/5 M PO; +INSULIN AS100 UNIT/6 SC; +KEPPRA100 MG/11 PO; +LEVE500 PO; +META800 PO; +METFORMIN HCL500 M3 PO; +MYRBETRIQ25 MG PO; +NOVOLIN R100 UNIT/2; +ROSUVASTATIN CA10 MG PO; +Ropinirole HCl0.5 MG PO; +TRIDERM28.4 GM TOP; +Tessalon200 MG PO; +Triamcinolone A15 G3 TOP; +VIMPAT10 MG/110 PO; +[UNRECOGNIZED DRUG - CODE] PO
== END | disposition home or self-care (01) ==
LOC: LAB SHORT 13:30 → LAB 13:30
DX: L57.0 Actinic keratosis (principal); L08.9 Local infection of the skin and subcutaneous tissue, unspecified
CPT/HCPCS: 87070; 87205

== ENCOUNTER 2025-06-30 15:34 | Emergency (ER) | payer MEDICARE, OTHER ==
[~2025-06-30] VITALS: Ht 175.3 cm; Wt 97.5 kg
[2025-06-30] MEDS ORDERED: ASPIR 8181 M1 PO (16:01)
[2025-06-30 16:07] LABS: BASOPHILS ABSOLUTE AUTO 0.02 K/mm3 (0.00-0.23); BASOPHILS PERCENT AUTO 0 % (0-2); EOSINOPHILS ABSOLUTE AUTO 0.26 K/mm3 (0.00-0.68); EOSINOPHILS PERCENT AUTO 4 % (0-6); Hematocrit 45.3 % (37.0-53.0); Hemoglobin 15.6 g/dL (13.5-17.5); IMMATURE GRAN ABSOLUTE AUTO 0.03 K/mm3 (0.00-0.10); IMMATURE GRAN PERCENT AUTO 0 % (0-1); LYMPHOCYTES ABSOLUTE AUTO 1.74 K/mm3 (0.84-5.20); LYMPHOCYTES PERCENT AUTO 25 % (21-46); MONOCYTES ABSOLUTE AUTO 0.51 K/mm3 (0.16-1.47); MONOCYTES PERCENT AUTO 7 % (4-13); Mean Corpuscular HGB Conc 34.4 g/dL (31.5-36.5); Mean Corpuscular Volume 93 fL (80-100); NEUTROPHILS ABSOLUTE AUTO 4.31 K/mm3 (1.96-9.15); NEUTROPHILS PERCENT AUTO 63 % (41-73); NRBC ABSOLUTE 0.00 K/mm3 (0.00-0.02); NRBC Auto 0.0 /100 WBC (0.0-0.2); Platelet Count 124 K/mm3 (150-400); RDW Coefficient Variation 13.1 % (11.7-14.2); RDW Standard Deviation 44.6 fL (35.1-46.3)
[2025-06-30 16:19] LABS: Alanine Aminotransfer (ALT/SGP 35.0 U/L (12-78); Albumin, Blood 3.5 g/dL (3.4-5.0); Albumin/Globulin Ratio 0.8 (0.8-1.8); Anion Gap 7.0 mmol/L (3-11); Aspartate Aminotrans (AST/SGOT 33.0 U/L (12-37); Bilirubin, Total 0.4 mg/dL (0.1-1.0); Blood Urea Nitrogen 30.0 mg/dL (8-24); CO2, Blood 29.0 mmol/L (21-32); Calcium, Blood 9.1 mg/dL (8.5-10.1); Chloride, Blood 104.0 mmol/L (98-108); Creatinine, Blood 1.19 mg/dL (0.60-1.20); Globulin, Blood 4.3 g/dL (2.2-4.0); Glucose, Blood 245.0 mg/dL (70-99); Potassium, Blood 4.9 mmol/L (3.5-5.5); Sodium, Blood 135.0 mmol/L (136-145); Total Protein, Blood 7.8 g/dL (6.4-8.2)
[2025-06-30 18:30] VITALS: BP 163/87
== END 2025-06-30 19:15 | disposition home or self-care (01) ==
LOC: ER 15:34
PROVIDERS: Student in an Organized Health Care Education/Training Program
DX: R55 Syncope and collapse (principal); E11.22 Type 2 diabetes mellitus with diabetic chronic kidney disease; I12.9 Hypertensive chronic kidney disease with stage 1 through stage 4 chronic kidney disease, or unspecified chronic kidney disease; N18.1 Chronic kidney disease, stage 1; J44.9 Chronic obstructive pulmonary disease, unspecified; I25.2 Old myocardial infarction; Z86.73 Personal history of transient ischemic attack (TIA), and cerebral infarction without residual deficits; Z79.899 Other long term (current) drug therapy; Z79.4 Long term (current) use of insulin; Z88.5 Allergy status to narcotic agent; Z88.8 Allergy status to other drugs, medicaments and biological substances
CPT/HCPCS: 70450; 71046; 80053; 83690; 84484; 85025

== ENCOUNTER 2025-10-23 19:06 | Emergency (ER) | payer MEDICARE, OTHER ==
[~2025-10-23] VITALS: Ht 167.6 cm; Wt 72.6 kg
[~2025-10-23 19:06] MED LIST changes: +ASPIR 8181 M1 PO
[2025-10-23 19:29] VITALS: BP 136/62
[2025-10-23] MEDS ORDERED: VIMPAT10 MG/110 PO (20:54)
[2025-10-24] MEDS ORDERED: VIMPAT100 MG PO (08:41)
== END 2025-10-23 21:07 | disposition home or self-care (01) ==
LOC: ER 19:06
DX: Z79.899 Other long term (current) drug therapy (principal); E11.9 Type 2 diabetes mellitus without complications; Z79.4 Long term (current) use of insulin; Z79.82 Long term (current) use of aspirin; Z88.2 Allergy status to sulfonamides; Z88.5 Allergy status to narcotic agent; Z88.8 Allergy status to other drugs, medicaments and biological substances
CPT/HCPCS: 99281; A9270

== ENCOUNTER 2025-11-05 15:41 | Inpatient (IN) | payer MEDICARE, OTHER ==
[~2025-11-05] VITALS: Ht 175.3 cm; Wt 104.7 kg
[~2025-11-05 15:41] MED LIST changes: -ACETAMINOP160 MG/53 PO; +VIMPAT100 MG PO
[2025-11-05] MEDS ORDERED: Ondansetron HCl 2 MG / ML 2ML Vial ONE (15:45)
[2025-11-05 16:26] LABS: BASOPHILS ABSOLUTE AUTO 0.01 K/mm3 (0.00-0.23); BASOPHILS PERCENT AUTO 0 % (0-2); EOSINOPHILS ABSOLUTE AUTO 0.32 K/mm3 (0.00-0.68); EOSINOPHILS PERCENT AUTO 4 % (0-6); Hematocrit 40.3 % (37.0-53.0); Hemoglobin 13.6 g/dL (13.5-17.5); IMMATURE GRAN ABSOLUTE AUTO 0.02 K/mm3 (0.00-0.10); IMMATURE GRAN PERCENT AUTO 0 % (0-1); LYMPHOCYTES ABSOLUTE AUTO 2.85 K/mm3 (0.84-5.20); LYMPHOCYTES PERCENT AUTO 40 % (21-46); MONOCYTES ABSOLUTE AUTO 0.54 K/mm3 (0.16-1.47); MONOCYTES PERCENT AUTO 8 % (4-13); Mean Corpuscular HGB Conc 33.7 g/dL (31.5-36.5); Mean Corpuscular Volume 96 fL (80-100); NEUTROPHILS ABSOLUTE AUTO 3.47 K/mm3 (1.96-9.15); NEUTROPHILS PERCENT AUTO 48 % (41-73); NRBC ABSOLUTE 0.00 K/mm3 (0.00-0.02); NRBC Auto 0.0 /100 WBC (0.0-0.2); Platelet Count 120 K/mm3 (150-400); RDW Coefficient Variation 13.2 % (11.7-14.2); RDW Standard Deviation 46.1 fL (35.1-46.3)
[2025-11-05] MEDS ORDERED: Ondansetron HCl 2 MG / ML 2ML Vial IV ONE (16:30)
[2025-11-05 16:49] LABS: Alanine Aminotransfer (ALT/SGP 27.0 U/L (12-78); Albumin, Blood 3.3 g/dL (3.4-5.0); Albumin/Globulin Ratio 0.9 (0.8-1.8); Anion Gap 10.0 mmol/L (3-11); Aspartate Aminotrans (AST/SGOT 18.0 U/L (12-37); Bilirubin, Total 0.3 mg/dL (0.1-1.0); Blood Urea Nitrogen 32.0 mg/dL (8-24); CO2, Blood 25.0 mmol/L (21-32); Calcium, Blood 8.9 mg/dL (8.5-10.1); Chloride, Blood 105.0 mmol/L (98-108); Creatinine, Blood 1.33 mg/dL (0.60-1.20); Globulin, Blood 3.6 g/dL (2.2-4.0); Glucose, Blood 174.0 mg/dL (70-99); Potassium, Blood 3.8 mmol/L (3.5-5.5); Sodium, Blood 136.0 mmol/L (136-145); Total Protein, Blood 6.9 g/dL (6.4-8.2)
[2025-11-05] MEDS ORDERED: NS 1,000 ML IV SCH ×3 (16:55→18:20)
[2025-11-05] MEDS ORDERED: HydrALAZINE HCl 20 MG / ML 1ML Vial IV PRN (18:20)
[2025-11-05] MEDS ORDERED: Albuterol 2.5 MG/3 ML VIAL INH PRN (18:20)
[2025-11-05] MEDS ORDERED: Ondansetron HCl 2 MG / ML 2ML Vial IV PRN (18:20)
[2025-11-05] MEDS ORDERED: FLU VACC TS2025(65UP)/MF59C/PF 45 MCG/0.5 ML SYRINGE IM SCH (18:25)
[2025-11-05 19:35] LABS: Influenza A/2009-H1 Not Detected (NOT DETECT); SARS-Cov-2 (COVID-19), BioFire Not Detected (NOT DETECT)
[2025-11-05] MEDS ORDERED: LevETIRAcetam 100 MG/ML 5ML ORAL SYR PO SCH (21:00)
[2025-11-05] MEDS ORDERED: Insulin Human Lispro 100 Units/ML 3ML Syringe SC SCH (21:00)
[2025-11-05 21:09] VITALS: BP 129/82
--- NOTE | 2025-11-05 23:02 | NUR ---
NURSE NOTE; PT TO ROOM 351 FROM ED AT 2103 W/ SON AT BEDSIDE. SON AND PT ORIENTED TO ROOM. PT MEDICATED PER EMAR. INITAL ASSESSMENT COMPLETE. AT APPROX. 2129, TELEMETRY NOTIFIED THIS RN THAT PT IS RUNNING JOSUE IN THE HIGH 30S- LOW 40S. PT OBSERVED SLEEPING DURING THIS EVENT. AWOKE PT AND HEART RATE INCREASED BACK INTO 50-60S. PT IS CURRENTLY ON CONTINOUS PULSE OX ON 2 L NC MAINTAINING O2 SAT >92%. PT IN LOWEST POSITION W/ FAMILY AT BEDSIDE AND CALL LIGHT WITHIN REACH. BED ALARM IS SET.
[2025-11-06 00:53] VITALS: BP 146/64
[2025-11-06] MEDS ORDERED: DOCUZEN 8.6-501 EACH PO (02:47)
[2025-11-06] MEDS ORDERED: LEVE500 PO (02:53)
[2025-11-06] MEDS ORDERED: TRIA15CR3 TOP (03:01)
[2025-11-06 03:48] VITALS: BP 114/62
--- NOTE | 2025-11-06 05:02 | NUR ---
SHIFT SUMMARY; PT A/OX4 W/ INTERMITTENT CONFUSION THAT IS REDIRECTABLE AND PT IS PLEASANT. SON AND AT BEDSIDE, HOWEVER REMAINED AT BEDSIDE THROUGH OUT THE SHIFT. PT HAS NOT BECOME BRADYCARDIC AFTER 2129. PT ON 2 L O2 NC MAINTAINING SAT BETWEEN 91-94%, W/ INTERMITTENT DROP IN SATS BELOW 88%. PT INCREASED TO 3 L NC O2 TOWARDS THE END OF SHIFT. PT HAS GOOD URINE OUTPUT. VSS. BED IN LOWEST POSITION W/ ALARM ON AND CALL LIGHT WITHIN REACH.
[2025-11-06 06:19] LABS: BASOPHILS ABSOLUTE AUTO 0.01 K/mm3 (0.00-0.23); BASOPHILS PERCENT AUTO 0 % (0-2); EOSINOPHILS ABSOLUTE AUTO 0.07 K/mm3 (0.00-0.68); EOSINOPHILS PERCENT AUTO 1 % (0-6); Hematocrit 41.2 % (37.0-53.0); Hemoglobin 13.9 g/dL (13.5-17.5); IMMATURE GRAN ABSOLUTE AUTO 0.03 K/mm3 (0.00-0.10); IMMATURE GRAN PERCENT AUTO 0 % (0-1); LYMPHOCYTES ABSOLUTE AUTO 1.53 K/mm3 (0.84-5.20); LYMPHOCYTES PERCENT AUTO 18 % (21-46); MONOCYTES ABSOLUTE AUTO 0.75 K/mm3 (0.16-1.47); MONOCYTES PERCENT AUTO 9 % (4-13); Mean Corpuscular HGB Conc 33.7 g/dL (31.5-36.5); Mean Corpuscular Volume 96 fL (80-100); NEUTROPHILS ABSOLUTE AUTO 6.08 K/mm3 (1.96-9.15); NEUTROPHILS PERCENT AUTO 72 % (41-73); NRBC ABSOLUTE 0.00 K/mm3 (0.00-0.02); NRBC Auto 0.0 /100 WBC (0.0-0.2); RDW Coefficient Variation 13.1 % (11.7-14.2); RDW Standard Deviation 46.0 fL (35.1-46.3)
[2025-11-06 06:35] LABS: Magnesium, Blood 2.2 mg/dL (1.6-2.4)
[2025-11-06 06:36] LABS: Alanine Aminotransfer (ALT/SGP 25.0 U/L (12-78); Albumin, Blood 3.1 g/dL (3.4-5.0); Albumin/Globulin Ratio 0.8 (0.8-1.8); Anion Gap 9.0 mmol/L (3-11); Aspartate Aminotrans (AST/SGOT 15.0 U/L (12-37); Bilirubin, Total 0.3 mg/dL (0.1-1.0); Blood Urea Nitrogen 29.0 mg/dL (8-24); CO2, Blood 27.0 mmol/L (21-32); Calcium, Blood 8.8 mg/dL (8.5-10.1); Chloride, Blood 108.0 mmol/L (98-108); Creatinine, Blood 1.23 mg/dL (0.60-1.20); Globulin, Blood 3.9 g/dL (2.2-4.0); Glucose, Blood 179.0 mg/dL (70-99); Potassium, Blood 4.7 mmol/L (3.5-5.5); Sodium, Blood 139.0 mmol/L (136-145); Total Protein, Blood 7.0 g/dL (6.4-8.2)
[2025-11-06 07:16] VITALS: BP 129/61
[2025-11-06] MEDS ORDERED: Enoxaparin 40 MG/0.4 ML SYR SC SCH (09:00)
[2025-11-06 09:17] LABS: pH Blood Venous 7.36 (7.34-7.37)
--- NOTE | 2025-11-06 09:26 | NUR ---
PALLIATIVE CARE CONSULT: CONSULT RECEIVED FOR AD/POLST. PT HAS NO POLST/AD ON FILE BUT HAS POLST WITH [facility]. POLST INDICATED PT CHOSE CPR/FULL TREATMENT AND WAS SIGNED BY ON 05/14/25. PRINTED POLST AND WILL SEND TO MEDICAL RECORDS.
[2025-11-06 11:48] VITALS: BP 123/59
[2025-11-06 15:26] VITALS: BP 130/60
[2025-11-06 17:00] LABS: Source, Urine Clean Catch
[2025-11-06 17:18] LABS: Bilirubin, Urine Neg (Neg); Glucose Qualitative, Urine 4+ (Neg); Ketones, Urine Neg (Neg); Leukocyte Esterase, Urine 3+ (Neg); Protein, Urine 3+ (Neg); Specific Gravity, Urine 1.015 (1.003-1.022); Urobilinogen, Urine NORM (Normal)
[2025-11-06 17:28] LABS: Color, Urine Pale Yellow (P-Yellow)
[2025-11-06 17:31] LABS: White Blood Cells, Urine TNTC /hpf (0-5)
[2025-11-06] MEDS ORDERED: CefTRIAXone Sodium 1,000 MG in NS 100 ML IV SCH (18:50)
--- NOTE | 2025-11-06 20:27 | NUR ---
SUMMARY- PT A/O X4, ALERT AND VERBAL, IN GOOD SPITITS AND FRIENDLY. ON 2L OXYGEN SATS 94-96%- LUNGS CLEAR, NO DYSPNEA. VSS, TELE SB 50'S. PT TOLERATING FOOD AND FLUIDS. BLOOD SUGARS MONITORED AC/HS WITH SS COVERAGE, AVG 150-200'S. DENIES PAIN. INCONT URINE, OBTAINED STRAIGHT CATH UA. CLEAR UNTIL END OF CATH THAN APPEARED LG AMOUNTS OF SEDIMENT/PURULANT DRAINAGE WITH SOME BLOOD. UA CAME BACK POSITIVE BUT DID NOT CX. INFORMED GATITO DASH TO F/U WITH UA FOR LAB TO CX. PT HAD MRI COMPLETED TODAY. WORKED WITH PHYSICAL TX AND ABLE TO AMBULATE 1 GAIT/FWW INTO HALLWAY. GOOD STRENGTH, MILDYLY UNSTEADY GAIT AT TIMES/UNCOORDINATED. USES CALL LIGHT AND KNOWS LIMITS. LARGE FAMILY IN OUT OF ROOM ALL DAY. REORTED TO GATITO RICARDO
[2025-11-06 20:34] VITALS: BP 124/60
[2025-11-07 00:34] VITALS: BP 145/62
--- NOTE | 2025-11-07 04:30 | NUR ---
NO ACUTE CHANGES DURING SHIFT. PATIENT ALERT AND ORIENTED X4 WITH MILD CONFUSION UPON WAKING. PATIENT ON 2 L NC WITH CONT. PULSE OX IN PLACE. PATIENT REFUSED CPAP AT NIGHT, RN EDUCATED PATIENT ON THE REASON FOR THE CPAP BUT STILL DECLINES. RN PLACED THE PATIENT ON NASAL CANNULA WHILE SLEEPING. PATIENT UP TO BATHROOM WITH 1 ASSIST AND FWW. NEW ORDER PLACED FOR URINE CULTURE- PATIENT AWARE. PATIENT ABLE TO SWALLOW PILLS WHOLE. BED IN LOW POSITION WITH WHEELS LOCKED. BED ALARAM ON WITH CALL LIGHT WITHIN REACH
[2025-11-07 05:33] VITALS: BP 116/49
[2025-11-07 05:42] LABS: BASOPHILS ABSOLUTE AUTO 0.03 K/mm3 (0.00-0.23); BASOPHILS PERCENT AUTO 0 % (0-2); EOSINOPHILS ABSOLUTE AUTO 0.34 K/mm3 (0.00-0.68); EOSINOPHILS PERCENT AUTO 5 % (0-6); Hematocrit 39.6 % (37.0-53.0); Hemoglobin 13.3 g/dL (13.5-17.5); IMMATURE GRAN ABSOLUTE AUTO 0.02 K/mm3 (0.00-0.10); IMMATURE GRAN PERCENT AUTO 0 % (0-1); LYMPHOCYTES ABSOLUTE AUTO 2.17 K/mm3 (0.84-5.20); LYMPHOCYTES PERCENT AUTO 30 % (21-46); MONOCYTES ABSOLUTE AUTO 0.58 K/mm3 (0.16-1.47); MONOCYTES PERCENT AUTO 8 % (4-13); Mean Corpuscular HGB Conc 33.6 g/dL (31.5-36.5); Mean Corpuscular Volume 97 fL (80-100); NEUTROPHILS ABSOLUTE AUTO 4.08 K/mm3 (1.96-9.15); NEUTROPHILS PERCENT AUTO 57 % (41-73); NRBC ABSOLUTE 0.00 K/mm3 (0.00-0.02); NRBC Auto 0.0 /100 WBC (0.0-0.2); Platelet Count 117 K/mm3 (150-400); RDW Coefficient Variation 13.2 % (11.7-14.2); RDW Standard Deviation 47.7 fL (35.1-46.3)
[2025-11-07 06:05] LABS: Alanine Aminotransfer (ALT/SGP 25.0 U/L (12-78); Albumin, Blood 2.9 g/dL (3.4-5.0); Albumin/Globulin Ratio 0.8 (0.8-1.8); Anion Gap 7.0 mmol/L (3-11); Aspartate Aminotrans (AST/SGOT 22.0 U/L (12-37); Bilirubin, Total 0.3 mg/dL (0.1-1.0); Blood Urea Nitrogen 31.0 mg/dL (8-24); CO2, Blood 25.0 mmol/L (21-32); Calcium, Blood 8.5 mg/dL (8.5-10.1); Chloride, Blood 110.0 mmol/L (98-108); Creatinine, Blood 1.28 mg/dL (0.60-1.20); Globulin, Blood 3.7 g/dL (2.2-4.0); Glucose, Blood 137.0 mg/dL (70-99); Potassium, Blood 4.4 mmol/L (3.5-5.5); Sodium, Blood 138.0 mmol/L (136-145); Total Protein, Blood 6.6 g/dL (6.4-8.2)
[2025-11-07 07:29] VITALS: BP 109/71
[2025-11-07 12:02] VITALS: BP 104/64
[2025-11-07] MEDS ORDERED: CefTRIAXone Sodium 1,000 MG in NS 100 ML IV ONE (12:45)
[2025-11-07] MEDS ORDERED: MOME220I INH (13:08)
[2025-11-07] MEDS ORDERED: METF500C PO (13:08)
[2025-11-07] MEDS ORDERED: Lisinopril2.5 MG PO (13:08)
[2025-11-07] MEDS ORDERED: TAMS.4ER PO (16:03)
[2025-11-07] MEDS ORDERED: CEFP200 PO (16:03)
[2025-11-07 16:26] VITALS: BP 122/72
--- NOTE | 2025-11-07 17:27 | NUR ---
SHIFT SUMMARY AND DISCHARGE. PATIENT ALERT AND INTERACTIVE. PATIENT ABLE TO WALK AROUND UNIT FOR HOME O2 EVAL. NO O2 NEEDED. PATIENT HAS HX OF WEARING A CPAP BUT CURRENTLY DOES NOT HAVE ONE. PATIENT REFUSED TO WEAR ONE LAST NIGHT. PATIENT HAVING EPISODES OF APNEA WHILE SLEEPING. DISCHARGE INSTRUCTIONS REVIEWED WITH PATIENT AND . IV DC'D PRIOR TO DISCHARGE. TELE REMOVED. PATIENT WAITING TO LEAVE AFTER DINNER.
== END 2025-11-07 18:00 | disposition home health service (06) | DRG 689 ==
LOC: ER 15:41 → MEDS 15:42 → ERHOLD 15:42 → MEDS 21:02
PROVIDERS: Emergency Medicine; Internal Medicine; Nurse Practitioner Acute Care; ADMIT Internal Medicine
DX: N39.0 Urinary tract infection, site not specified (principal); G92.8 Other toxic encephalopathy; I25.10 Atherosclerotic heart disease of native coronary artery without angina pectoris; G40.909 Epilepsy, unspecified, not intractable, without status epilepticus; E11.22 Type 2 diabetes mellitus with diabetic chronic kidney disease; N18.30 Chronic kidney disease, stage 3 unspecified; M10.9 Gout, unspecified; E66.01 Morbid (severe) obesity due to excess calories; G47.33 Obstructive sleep apnea (adult) (pediatric); R55 Syncope and collapse; R00.1 Bradycardia, unspecified; I16.0 Hypertensive urgency; N40.0 Benign prostatic hyperplasia without lower urinary tract symptoms; E78.5 Hyperlipidemia, unspecified; I65.22 Occlusion and stenosis of left carotid artery; Z95.5 Presence of coronary angioplasty implant and graft; Z86.73 Personal history of transient ischemic attack (TIA), and cerebral infarction without residual deficits; Z79.4 Long term (current) use of insulin; I25.2 Old myocardial infarction; Z90.49 Acquired absence of other specified parts of digestive tract
CPT/HCPCS: 0202U; 36415; 70450; 70496; 70498; 70551; 71045; 80053; 81001; 82803; 82947; 83735; 84443; 84484; 85025; 93005; 93010; 94660; 94761; 94762; 96361; 96372; 96374; 97116; 97161; 97530; 99285-25; A9270; G0378; J0696; J1650; J2405; J7030; Q9967